=== PATIENT | female | born 1955 | race Caucasian/White ===

== ENCOUNTER 2023-01-11 09:43 | Inpatient (IN) ==
[2023-01-11] MEDS ORDERED: Morphine 4 MG/ML VIAL (1 ml) IV ONE (10:40)
[2023-01-11] MEDS ORDERED: fentaNYL 100 mcg/2 ml 50 MCG/ML VIAL IV SLOW PU ONE (14:09)
[2023-01-11] MEDS ORDERED: Midazolam 2 mg/2 ml VIAL 1 mg/ml 2 ml VIAL (2 mg) IV SLOW PU ONE (14:09)
[2023-01-11] MEDS ORDERED: NS 0.9% 1000 ml BAG 1,000 ML IV SCH (15:00)
[2023-01-11 16:37] LABS: ABS Basophils 0.1 10^3/uL (0.0-0.1); ABS Eosinophils 0.1 10^3/uL (0.0-0.5); ABS Lymphocytes 1.4 10^3/uL (1.0-4.8); ABS Monocytes 0.6 10^3/uL (0.0-0.9); ABS Neutrophils 7.6 10^3/uL (1.5-7.6); Eosinophil % 1.4 %; Hematocrit 37.4 % (35-45); Hemoglobin 12.4 g/dL (11.5-14.3); Lymphocyte % 14.5 %; Mean Corpuscular Hemoglobin 29.5 pg (27-33); Mean Corpuscular Hgb Conc 33.2 g/dL (31-36); Mean Platelet Volume 7.7 fL (7.5-11.2); Platelet Count 372 10^3/uL (150-450); Red Cell Distribution Width 13.9 % (12-17); White Blood Count 9.9 10^3/uL (3.8-11.8)
[2023-01-11 16:46] LABS: Activated Partial Thrombo Time 27.2 seconds (26.0-38.0); INR 0.95 (0.83-1.13)
[2023-01-11 16:59] LABS: Albumin/Globulin Ratio 1.1 (1-3); Calcium 8.4 mg/dL (8.6-10.3); Creatinine, Serum 1.31 mg/dL (0.51-0.95); Globulin 2.8 g/dL (2-4); Total Bilirubin 0.4 mg/dL (0.2-1.0); Total Protein 5.8 g/dL (6.4-8.9); eGFR CKD-EPI 45.2 (>60)
[2023-01-11] MEDS ORDERED: Heparin 5000 UNITS/ML 1 mL VIAL SUBCUT ONE (17:29)
[2023-01-11] MEDS ORDERED: Dextrose 50% Syringe 50 ml 25 GM/50 ML SYRINGE IV PUSH PRN (18:25)
[2023-01-11] MEDS ORDERED: Senna TAB 8.6 mg TAB PO PRN (18:28)
[2023-01-11] MEDS ORDERED: Polyethylene Glycol 3350 17 GM PACKET PO PRN (18:28)
[2023-01-11] MEDS: Morphine 2 MG/ML SYRINGE IV PRN (20:03)
[2023-01-11] MEDS: Lactated Ringers 1000 ml BAG 1,000 ML IV SCH (21:43)
[2023-01-11] MEDS: Acetaminophen IV 1 GM/100ML 1,000 MG/100 ML BAG IV PRN (21:44)
[2023-01-12] MEDS ORDERED: Ondansetron 4 mg VIAL 2 MG/ML 2 ml VIAL IV ONE (02:02)
[2023-01-12] MEDS: Morphine 2 MG/ML SYRINGE IV PRN ×2 (03:27→08:42)
[2023-01-12] MEDS: Lactated Ringers 1000 ml BAG 1,000 ML IV SCH (05:23)
[2023-01-12 06:07] LABS: Hematocrit 30.9 % (35-45); Hemoglobin 10.3 g/dL (11.5-14.3); Mean Corpuscular Hemoglobin 29.7 pg (27-33); Mean Corpuscular Hgb Conc 33.2 g/dL (31-36); Mean Corpuscular Volume 89.5 fL (80-97); Mean Platelet Volume 7.9 fL (7.5-11.2); Platelet Count 318 10^3/uL (150-450); Red Blood Count 3.45 10^6/uL (3.63-4.92); Red Cell Distribution Width 14.4 % (12-17); White Blood Count 7.7 10^3/uL (3.8-11.8)
[2023-01-12 06:24] LABS: Calcium 7.9 mg/dL (8.6-10.3); Creatinine, Serum 1.5 mg/dL (0.51-0.95); Magnesium 1.7 mg/dL (1.9-2.7); Potassium 5.2 mmol/L (3.5-5.0); eGFR CKD-EPI 38.4 (>60)
[2023-01-12] MEDS ORDERED: Magnesium Sulfate 2 gm BAG 2 GM/50 ML BAG IVPB ONE (08:00)
[2023-01-12] MEDS ORDERED: NS 0.9% 1000 ml BAG 1,000 ML IV SCH (08:00)
[2023-01-12] MEDS ORDERED: Omeprazole 20 mg CAP (NF) PO SCH (09:00)
[2023-01-12] MEDS ORDERED: Dextrose 50% Syringe 50 ml 25 GM/50 ML SYRINGE IV PUSH ONE (10:04)
[2023-01-12] MEDS ORDERED: Dextrose 50% VIAL 50 ml IV ONE (10:04)
[2023-01-12] MEDS ORDERED: Albuterol HFA INHALER 8 gm MDI INH ONE (10:11)
[2023-01-12] MEDS ORDERED: Albuterol 2.5mg/3 ml (0.083%) NEB.SOLN INH ONE (10:30)
[2023-01-12] MEDS ORDERED: fentaNYL 100 mcg/2 ml 50 MCG/ML VIAL ONE (10:43)
[2023-01-12] MEDS ORDERED: Rocuronium 50 mg VIAL 10 mg/ml 5 ml VIAL (50 mg) ONE (10:43)
[2023-01-12] MEDS ORDERED: Lidocaine 2% PF 5 ML VIAL ONE (10:43)
[2023-01-12] MEDS ORDERED: Propofol 10 MG/ML 20 ML BTL ONE (10:43)
[2023-01-12] MEDS ORDERED: Midazolam 2 mg/2 ml VIAL 1 mg/ml 2 ml VIAL (2 mg) ONE (10:43)
[2023-01-12] MEDS ORDERED: Lidocaine 1% w EPI 1:200,000 SDV 30 ML VIAL ONE (11:23)
[2023-01-12] MEDS ORDERED: ceFAZolin 2 GM in NS PREMIX 2 GM/100 ML BAG IVPB ONE (11:35)
[2023-01-12] MEDS ORDERED: Ondansetron 4 mg VIAL 2 MG/ML 2 ml VIAL ONE ×2 (12:46→16:38)
[2023-01-12] MEDS ORDERED: Dexamethasone IV 4 MG/ML VIAL 1 ml VIAL ONE (12:46)
[2023-01-12] MEDS ORDERED: HYDROmorphone 0.5 MG/0.5 ML SYRINGE ONE (13:06)
[2023-01-12] MEDS ORDERED: Acetaminophen IV 1 GM/100ML 1,000 MG/100 ML BAG IV ONE (14:49)
[2023-01-12] MEDS ORDERED: Ondansetron 4 mg VIAL 2 MG/ML 2 ml VIAL IV PRN (15:14)
[2023-01-12] MEDS ORDERED: HYDROmorphone 1 MG/1 ML SYRINGE IV PRN (15:14)
[2023-01-12] MEDS ORDERED: Naloxone 0.4 mg VIAL 0.4 mg/ml 1 ml VIAL IV PRN (15:14)
[2023-01-12] MEDS ORDERED: fentaNYL 100 mcg/2 ml 50 MCG/ML VIAL IV PRN (15:14)
[2023-01-12] MEDS ORDERED: fentaNYL 100 mcg/2 ml 50 MCG/ML VIAL IV SLOW PU PRN (16:42)
[2023-01-12] MEDS ORDERED: Lactated Ringers 1000 ml BAG 1,000 ML IV SCH (17:00)
[2023-01-12] MEDS: ceFAZolin 2 GM PREMIX 2 GM/50 ML BAG IV SCH (20:21)
[2023-01-12] MEDS: Acetaminophen IV 1 GM/100ML 1,000 MG/100 ML BAG IV PRN (21:16)
[2023-01-13] MEDS: ceFAZolin 2 GM PREMIX 2 GM/50 ML BAG IV SCH ×2 (04:50→12:27)
[2023-01-13 07:45] LABS: Hematocrit 28.3 % (35-45); Hemoglobin 9.4 g/dL (11.5-14.3); Mean Corpuscular Hemoglobin 29.9 pg (27-33); Mean Corpuscular Hgb Conc 33.3 g/dL (31-36); Mean Corpuscular Volume 89.6 fL (80-97); Mean Platelet Volume 7.9 fL (7.5-11.2); Platelet Count 321 10^3/uL (150-450); Red Blood Count 3.16 10^6/uL (3.63-4.92); Red Cell Distribution Width 14.1 % (12-17); White Blood Count 11.9 10^3/uL (3.8-11.8)
[2023-01-13 08:06] LABS: Calcium 7.8 mg/dL (8.6-10.3); Creatinine, Serum 1.67 mg/dL (0.51-0.95); Magnesium 2.2 mg/dL (1.9-2.7); Potassium 5.4 mmol/L (3.5-5.0); eGFR CKD-EPI 33.8 (>60)
[2023-01-13] MEDS: Enoxaparin 40 MG/0.4 ML SYR SUBCUT SCH (08:17)
[2023-01-13] MEDS ORDERED: SODIUM ZIRCONIUM CYCLOSILICATE 10 GM PACKET PO ONE (08:58)
[2023-01-13 17:48] LABS: Calcium 8.2 mg/dL (8.6-10.3); Creatinine, Serum 1.72 mg/dL (0.51-0.95); Potassium 5.2 mmol/L (3.5-5.0); eGFR CKD-EPI 32.6 (>60)
[2023-01-13] MEDS: Acetaminophen IV 1 GM/100ML 1,000 MG/100 ML BAG IV PRN (21:29)
[2023-01-14 07:21] LABS: ABS Eosinophils 0.1 10^3/uL (0.0-0.5); ABS Lymphocytes 1.8 10^3/uL (1.0-4.8); ABS Monocytes 0.9 10^3/uL (0.0-0.9); ABS Neutrophils 7.3 10^3/uL (1.5-7.6); Eosinophil % 1.2 %; Hematocrit 27.1 % (35-45); Hemoglobin 9.1 g/dL (11.5-14.3); Lymphocyte % 18.1 %; Mean Corpuscular Hemoglobin 30.2 pg (27-33); Mean Corpuscular Hgb Conc 33.8 g/dL (31-36); Mean Corpuscular Volume 89.4 fL (80-97); Mean Platelet Volume 7.9 fL (7.5-11.2); Platelet Count 319 10^3/uL (150-450); Red Blood Count 3.03 10^6/uL (3.63-4.92); Red Cell Distribution Width 14.3 % (12-17); White Blood Count 10.2 10^3/uL (3.8-11.8)
[2023-01-14 07:38] LABS: Calcium 7.9 mg/dL (8.6-10.3); Creatinine, Serum 1.68 mg/dL (0.51-0.95); Magnesium 2.2 mg/dL (1.9-2.7); Potassium 4.7 mmol/L (3.5-5.0); eGFR CKD-EPI 33.5 (>60)
[2023-01-14] MEDS: Enoxaparin 40 MG/0.4 ML SYR SUBCUT SCH (08:36)
[2023-01-15 07:04] LABS: ABS Eosinophils 0.2 10^3/uL (0.0-0.5); ABS Lymphocytes 1.7 10^3/uL (1.0-4.8); ABS Monocytes 0.7 10^3/uL (0.0-0.9); ABS Neutrophils 5.4 10^3/uL (1.5-7.6); ABS Nucleated RBC 0.01 10^3/ul; Eosinophil % 2.3 %; Hematocrit 26.4 % (35-45); Hemoglobin 8.9 g/dL (11.5-14.3); Lymphocyte % 20.7 %; Mean Corpuscular Hemoglobin 30.3 pg (27-33); Mean Corpuscular Hgb Conc 33.8 g/dL (31-36); Mean Corpuscular Volume 89.5 fL (80-97); Mean Platelet Volume 7.9 fL (7.5-11.2); Nucleated Red Blood Cells % 0.1 /100 WBC (0.0-0.4); Platelet Count 317 10^3/uL (150-450); Red Blood Count 2.95 10^6/uL (3.63-4.92); Red Cell Distribution Width 14.4 % (12-17)
[2023-01-15 07:20] LABS: Calcium 7.9 mg/dL (8.6-10.3); Creatinine, Serum 1.61 mg/dL (0.51-0.95); Potassium 4.7 mmol/L (3.5-5.0); eGFR CKD-EPI 35.3 (>60)
[2023-01-15] MEDS: Enoxaparin 40 MG/0.4 ML SYR SUBCUT SCH (08:38)
[2023-01-15] MEDS: CMCS: SitaGLIPtin 100 mg TAB (NF) PO SCH (15:07)
[2023-01-16 05:44] LABS: Hematocrit 23.8 % (35-45); Hemoglobin 8.2 g/dL (11.5-14.3); Mean Corpuscular Hemoglobin 30.4 pg (27-33); Mean Corpuscular Hgb Conc 34.4 g/dL (31-36); Mean Corpuscular Volume 88.3 fL (80-97); Mean Platelet Volume 7.8 fL (7.5-11.2); Platelet Count 323 10^3/uL (150-450); Red Blood Count 2.69 10^6/uL (3.63-4.92); Red Cell Distribution Width 14.1 % (12-17); White Blood Count 6.7 10^3/uL (3.8-11.8)
[2023-01-16 06:07] LABS: Calcium 8.2 mg/dL (8.6-10.3); Creatinine, Serum 1.42 mg/dL (0.51-0.95); Magnesium 1.9 mg/dL (1.9-2.7); Phosphorus 3.5 mg/dL (2.5-5.0); Potassium 4.9 mmol/L (3.5-5.0)
[2023-01-16] MEDS: Enoxaparin 40 MG/0.4 ML SYR SUBCUT SCH (08:38)
[2023-01-16 10:47] VITALS: BP 151/72
[2023-01-16] MEDS: CMCS: SitaGLIPtin 100 mg TAB (NF) PO SCH (11:18)
[2023-01-16 13:40] LABS: Rapid COVID-19 Molecular Undetected (Undetected)
== END 2023-01-16 14:30 | DRG 494 ==
LOC: ED 09:43 → SUATTDRO 17:27 → EDHOLD 17:27 → SSU 17:36
PROVIDERS: ADMIT Internal Medicine; ATTEND Internal Medicine

== ENCOUNTER 2023-07-06 19:26 | Inpatient (IN) ==
[2023-07-06 20:45] LABS: ABS Basophils 0.1 10^3/uL (0.0-0.1); ABS Monocytes 0.4 10^3/uL (0.0-0.9); ABS Neutrophils 12.5 10^3/uL (1.5-7.6); ABS Nucleated RBC 0.03 10^3/ul; Eosinophil % 0.2 %; Hematocrit 34.4 % (35-45); Hemoglobin 11.5 g/dL (11.5-14.3); Lymphocyte % 6.9 %; Mean Corpuscular Hemoglobin 29.4 pg (27-33); Mean Corpuscular Hgb Conc 33.5 g/dL (31-36); Mean Corpuscular Volume 87.8 fL (80-97); Mean Platelet Volume 8.6 fL (7.5-11.2); Nucleated Red Blood Cells % 0.2 %/100WBC (0.0-0.8); Platelet Count 613 10^3/uL (150-450); Red Blood Count 3.91 10^6/uL (3.63-4.92); Red Cell Distribution Width 22.4 % (12-17); White Blood Count 14.1 10^3/uL (3.8-11.8)
[2023-07-06 21:02] LABS: Activated Partial Thrombo Time 61.4 seconds (26.0-38.0); INR 4.08 (0.83-1.13)
[2023-07-06 21:08] LABS: High Sens Troponin Baseline 19 pg/mL (<15)
[2023-07-06 21:10] LABS: ALT 87 U/L (7-52); Albumin 1.8 g/dL (3.2-5.2); Albumin/Globulin Ratio 0.4 (1-3); Alkaline Phosphatase 345 U/L (35-149); Anion Gap 14 mmol/L (2-16); Blood Urea Nitrogen 38 mg/dL (6-24); C Reactive Protein 89.76 mg/L (<8.01); CO2 Carbon Dioxide 16 mmol/L (22-32); CRP High Sensitivity 79.63 mg/L (<2.00); Calcium 7.1 mg/dL (8.6-10.3); Chloride 99 mmol/L (101-111); Creatinine, Serum 4.17 mg/dL (0.51-0.95); Globulin 4.2 g/dL (2-4); Glucose 30 mg/dL (70-100); Sodium 129 mmol/L (135-145); Total Bilirubin 0.5 mg/dL (0.2-1.0); eGFR CKD-EPI 11.3 (>60)
[2023-07-06] MEDS ORDERED: Dextrose 50% Syringe 50 ml 25 GM/50 ML SYRINGE ONE (21:11)
[2023-07-06 21:12] LABS: Venous Bicarbonate HCO3 17.9 mmol/L (24-28)
[2023-07-06] MEDS: NS 0.9% 1000 ml BAG 1,000 ML IV ONE (21:16)
[2023-07-06] MEDS: Dextrose 50% Syringe 50 ml 25 GM/50 ML SYRINGE IV PUSH ONE ×2 (21:16→21:18)
[2023-07-06] MEDS: Cefepime 2 GM in Dextrose 2 GM/50 ML BAG IV ONE (21:18)
[2023-07-06 21:30] LABS: TSH Ultra Thyroid Stim Horm 8.09 mcIU/mL (0.34-5.60)
[2023-07-06] MEDS: NS 0.9% 500 ml BAG 500 ML IV ONE (21:30)
[2023-07-06] MEDS: Vancomycin 1,250 MG in NS 0.9% 250 ml 250 ML IVPB ONE (21:48)
[2023-07-06 22:05] LABS: High Sensitivity Troponin 1 Hr 20 pg/mL (<15)
[2023-07-06 22:13] LABS: Lipase 19 U/L (11.0-82.0)
[2023-07-06 23:27] LABS: Creatine Kinase 148 U/L (10-223)
[2023-07-07] LABS: Urine Appearance Extra Turbid; Urine Bilirubin Negative (Negative); Urine Blood 2+ (Negative); Urine Glucose Negative (Negative); Urine Ketones Trace (Negative); Urine Nitrite Negative (Negative); Urine Protein 2+ (>=100 mg/dL) (Negative); Urine Specific Gravity 1.018 (1.002-1.030); Urine Urobilinogen Negative (Negative); Urine pH 5.5 (5.0-8.0)
[2023-07-07] MEDS: Albumin Human 25% 100 GM/400 ML BTL IV ONE (00:14)
[2023-07-07 00:18] LABS: Magnesium 1.7 mg/dL (1.9-2.7); Potassium 4.7 mmol/L (3.5-5.0)
[2023-07-07 00:26] LABS: Urine Bacteria 2+ /HPF (Absent); Urine Red Blood Cell 3+(>10/hpf) /HPF (0-Trace); Urine White Blood Cell 3+(>20/hpf) /HPF (0-Trace)
[2023-07-07] MEDS ORDERED: Calcium Gluconate 2 GM in NS 0.9% 100 ml BAG 100 ML IVPB ONE (00:30)
[2023-07-07 00:33] LABS: Urine Color Light-Yellow
[2023-07-07] MEDS: Magnesium Sulfate 2 gm BAG 2 GM/50 ML BAG IVPB ONE (01:29)
[2023-07-07] MEDS: CALCIUM GLUCONATE 1GM/50ML NS BAG IV SCH (01:30)
[2023-07-07 01:33] LABS: Acetaminophen < 15 mcg/mL; GGTP 182 U/L (9-64.0)
[2023-07-07] MEDS: Cefepime 1 GM in Dextrose 1 GM/50 ML BAG IV SCH ×2 (01:34→04:43)
[2023-07-07] MEDS: Norepinephrine 4 MG/250mL D5W 4,000 MCG/250 ML BAG IV SCH (01:40)
[2023-07-07] MEDS: D5LR 1000 ml BAG 1,000 ML IV SCH (03:27)
[2023-07-07] MEDS: Meropenem 1 GM PREMIX(*) 1 GM/50 ML BAG IV SCH ×2 (04:34→04:43)
[2023-07-07 06:18] LABS: Albumin 3.1 g/dL (3.2-5.2); Albumin/Globulin Ratio 1.5 (1-3); Calcium 7.4 mg/dL (8.6-10.3); Creatinine, Serum 3.97 mg/dL (0.51-0.95); Globulin 2.1 g/dL (2-4); Magnesium 1.9 mg/dL (1.9-2.7); Potassium 4.7 mmol/L (3.5-5.0); Total Bilirubin 0.9 mg/dL (0.2-1.0); Total Protein 5.2 g/dL (6.4-8.9)
[2023-07-07 06:29] LABS: ABS Lymphocytes 1.2 10^3/uL (1.0-4.8); ABS Monocytes 0.6 10^3/uL (0.0-0.9); ABS Neutrophils 9.8 10^3/uL (1.5-7.6); ABS Nucleated RBC 0.01 10^3/ul; Eosinophil % 0.2 %; Hematocrit 20.3 % (35-45); Hemoglobin 6.8 g/dL (11.5-14.3); Lymphocyte % 10.1 %; Mean Corpuscular Hemoglobin 29.5 pg (27-33); Mean Corpuscular Hgb Conc 33.6 g/dL (31-36); Mean Platelet Volume 8.3 fL (7.5-11.2); Nucleated Red Blood Cells % 0.1 %/100WBC (0.0-0.8); Platelet Count 364 10^3/uL (150-450); Red Blood Count 2.31 10^6/uL (3.63-4.92); Red Cell Distribution Width 21.3 % (12-17); White Blood Count 11.5 10^3/uL (3.8-11.8)
[2023-07-07 08:50] LABS: Hematocrit 20.8 % (35-45); Hemoglobin 7.1 g/dL (11.5-14.3)
[2023-07-07] MEDS: Furosemide 40 mg/4 ml IV VIAL IV ONE ×2 (09:53→15:46)
[2023-07-07] MEDS: Pantoprazole VIAL 40 MG VIAL IV SCH (10:45)
[2023-07-07] MEDS: D10W 1000 ml BAG 1,000 ML IV SCH ×2 (12:26→15:47)
[2023-07-07] MEDS: Phytonadione IV (Adult) 5 MG in NS 0.9% 50 ML 50 ML IV ONE (15:56)
[2023-07-07 16:23] LABS: ABS Basophils 0.1 10^3/uL (0.0-0.1); ABS Eosinophils 0.1 10^3/uL (0.0-0.5); ABS Lymphocytes 0.8 10^3/uL (1.0-4.8); ABS Monocytes 0.3 10^3/uL (0.0-0.9); ABS Neutrophils 10.2 10^3/uL (1.5-7.6); ABS Nucleated RBC 0.03 10^3/ul; Eosinophil % 0.5 %; Hematocrit 28.1 % (35-45); Hemoglobin 9.5 g/dL (11.5-14.3); Mean Corpuscular Hemoglobin 29.3 pg (27-33); Mean Corpuscular Volume 86.3 fL (80-97); Mean Platelet Volume 8.3 fL (7.5-11.2); Nucleated Red Blood Cells % 0.3 %/100WBC (0.0-0.8); Platelet Count 328 10^3/uL (150-450); Red Blood Count 3.26 10^6/uL (3.63-4.92); Red Cell Distribution Width 18.8 % (12-17); White Blood Count 11.3 10^3/uL (3.8-11.8)
[2023-07-07] MEDS ORDERED: Vancomycin per Pharmacy 1 EA NOTE FOLLOW UP SCH (19:00)
[2023-07-08 05:38] LABS: Hematocrit 31.7 % (35-45); Hemoglobin 10.7 g/dL (11.5-14.3); Mean Corpuscular Hgb Conc 33.6 g/dL (31-36); Mean Corpuscular Volume 86.2 fL (80-97); Mean Platelet Volume 8.6 fL (7.5-11.2); Platelet Count 362 10^3/uL (150-450); Red Blood Count 3.68 10^6/uL (3.63-4.92); Red Cell Distribution Width 19.3 % (12-17); White Blood Count 13.6 10^3/uL (3.8-11.8)
[2023-07-08 05:52] LABS: Calcium 7.1 mg/dL (8.6-10.3); Creatinine, Serum 3.62 mg/dL (0.51-0.95); Magnesium 1.8 mg/dL (1.9-2.7); Phosphorus 3.9 mg/dL (2.5-5.0); Potassium 4.1 mmol/L (3.5-5.0); eGFR CKD-EPI 13.4 (>60)
[2023-07-08 06:02] LABS: ABS Basophils 0.1 10^3/uL (0.0-0.1); ABS Eosinophils 0.1 10^3/uL (0.0-0.5); ABS Lymphocytes 1.2 10^3/uL (1.0-4.8); ABS Monocytes 0.5 10^3/uL (0.0-0.9); ABS Neutrophils 11.7 10^3/uL (1.5-7.6); ABS Nucleated RBC 0.01 10^3/ul; Eosinophil % 0.7 %; Nucleated Red Blood Cells % 0.1 %/100WBC (0.0-0.8)
[2023-07-08] MEDS: Vancomycin Random Level NOTE FOLLOW UP ONE (06:15)
[2023-07-08 06:28] LABS: Vancomycin Random 11.7 mcg/mL
[2023-07-08] MEDS: Furosemide IV 100 MG in NS 0.9% 100 ML TOTAL IV SCH (09:51)
[2023-07-08 10:29] LABS: INR 2.74 (0.83-1.13)
[2023-07-08 10:44] LABS: Anion Gap 9 mmol/L (2-16); Blood Urea Nitrogen 34 mg/dL (6-24); CO2 Carbon Dioxide 19 mmol/L (22-32); Calcium 6.7 mg/dL (8.6-10.3); Chloride 105 mmol/L (101-111); Creatinine, Serum 3.39 mg/dL (0.51-0.95); Glucose 192 mg/dL (70-100); Sodium 133 mmol/L (135-145); eGFR CKD-EPI 14.4 (>60)
[2023-07-08 11:23] LABS: Albumin 2.3 g/dL (3.2-5.2)
[2023-07-08] MEDS: Oseltamivir SUSP ORALSYR 6 MG/ML PO SCH (12:09)
[2023-07-08] MEDS: Albumin Human 25% 0 GM/0 ML BTL IV ONE (12:57)
[2023-07-08] MEDS: Albumin Human 25% 25 GM/100 ML BTL IV SCH (13:15)
[2023-07-08 13:20] LABS: Glucose 210 mg/dL (70-100)
[2023-07-08 13:24] LABS: Potassium, Whole Blood 4.3 mmol/L (3.4-4.5)
[2023-07-08] MEDS: Vancomycin 750 MG in NS 0.9% 250 ML IVPB ONE (14:05)
[2023-07-08 16:21] LABS: Calcium 7.2 mg/dL (8.6-10.3); Creatinine, Serum 3.46 mg/dL (0.51-0.95); Potassium 3.6 mmol/L (3.5-5.0); eGFR CKD-EPI 14.1 (>60)
[2023-07-08 20:51] LABS: Anion Gap 14 mmol/L (2-16); Blood Urea Nitrogen 35 mg/dL (6-24); CO2 Carbon Dioxide 19 mmol/L (22-32); Calcium 7.8 mg/dL (8.6-10.3); Chloride 101 mmol/L (101-111); Creatinine, Serum 3.49 mg/dL (0.51-0.95); Glucose 209 mg/dL (70-100); Sodium 134 mmol/L (135-145)
[2023-07-09 06:07] LABS: ABS Basophils 0.1 10^3/uL (0.0-0.1); ABS Eosinophils 0.1 10^3/uL (0.0-0.5); ABS Monocytes 0.4 10^3/uL (0.0-0.9); ABS Neutrophils 8.8 10^3/uL (1.5-7.6); ABS Nucleated RBC 0.01 10^3/ul; Eosinophil % 1.4 %; Hematocrit 25.6 % (35-45); Hemoglobin 9.2 g/dL (11.5-14.3); Lymphocyte % 9.6 %; Mean Corpuscular Hemoglobin 30.7 pg (27-33); Mean Corpuscular Hgb Conc 35.8 g/dL (31-36); Mean Corpuscular Volume 85.8 fL (80-97); Mean Platelet Volume 8.9 fL (7.5-11.2); Nucleated Red Blood Cells % 0.1 %/100WBC (0.0-0.8); Platelet Count 283 10^3/uL (150-450); Red Blood Count 2.99 10^6/uL (3.63-4.92); Red Cell Distribution Width 18.9 % (12-17); White Blood Count 10.5 10^3/uL (3.8-11.8)
[2023-07-09] MEDS: Vancomycin Random Level NOTE FOLLOW UP ONE (06:22)
[2023-07-09 06:36] LABS: Anion Gap 13 mmol/L (2-16); Blood Urea Nitrogen 35 mg/dL (6-24); CO2 Carbon Dioxide 20 mmol/L (22-32); Calcium 7.7 mg/dL (8.6-10.3); Chloride 102 mmol/L (101-111); Creatinine, Serum 3.32 mg/dL (0.51-0.95); Glucose 165 mg/dL (70-100); Sodium 135 mmol/L (135-145); eGFR CKD-EPI 14.8 (>60)
[2023-07-09 06:42] LABS: Vancomycin Random 18.7 mcg/mL
[2023-07-09 07:56] LABS: Albumin 3.4 g/dL (3.2-5.2)
[2023-07-09 09:21] LABS: Magnesium 1.8 mg/dL (1.9-2.7)
[2023-07-09] MEDS: Thiamine 100 MG/ML 2 ml VIAL 500 MG in NS 0.9% 250 ml 250 ML IV SCH (09:54)
[2023-07-09 10:52] LABS: INR 2.36 (0.83-1.13)
[2023-07-09 10:52] LABS: Potassium, Whole Blood 3.2 mmol/L (3.4-4.5)
[2023-07-09] MEDS: Vancomycin 500 MG in NS 0.9% 250 ML IVPB ONE (13:02)
[2023-07-09] MEDS ORDERED: Zosyn per Pharmacy NOTE FOLLOW UP SCH (16:00)
[2023-07-09] MEDS: ZOSYN 3.375 GM x ONE DOSE over 30 miuntes IV (16:46)
[2023-07-09] MEDS: ZOSYN 3.375 GM Q12H per EXTENDED INFUSION IV SCH (21:44)
[2023-07-09] MEDS: Carbamide Peroxide 6.5% OTIC 15 ML BTL BOTH EARS SCH (21:53)
[2023-07-10] MEDS: Acetaminophen IV 1 GM/100ML 1,000 MG/100 ML BAG IV ONE ×2 (00:15→02:51)
[2023-07-10] MEDS: Ondansetron 4 mg VIAL 2 MG/ML 2 ml VIAL IV PRN (00:20)
[2023-07-10] MEDS: Ondansetron 4 mg VIAL 2 MG/ML 2 ml VIAL ONE (02:51)
[2023-07-10 04:34] LABS: Hematocrit 28.1 % (35-45); Hemoglobin 9.7 g/dL (11.5-14.3); Mean Corpuscular Hgb Conc 34.5 g/dL (31-36); Mean Platelet Volume 9.1 fL (7.5-11.2); Platelet Count 255 10^3/uL (150-450); Red Blood Count 3.24 10^6/uL (3.63-4.92); Red Cell Distribution Width 18.7 % (12-17); White Blood Count 10.5 10^3/uL (3.8-11.8)
[2023-07-10 04:38] LABS: INR 1.93 (0.83-1.13)
[2023-07-10 05:19] LABS: ALT 45 U/L (7-52); Albumin 2.6 g/dL (3.2-5.2); Albumin/Globulin Ratio 1.4 (1-3); Alkaline Phosphatase 248 U/L (35-149); Anion Gap 15 mmol/L (2-16); Blood Urea Nitrogen 33 mg/dL (6-24); CO2 Carbon Dioxide 22 mmol/L (22-32); Calcium 7.3 mg/dL (8.6-10.3); Chloride 102 mmol/L (101-111); Creatinine, Serum 2.91 mg/dL (0.51-0.95); Globulin 1.9 g/dL (2-4); Glucose 129 mg/dL (70-100); Sodium 139 mmol/L (135-145); Total Bilirubin 1.3 mg/dL (0.2-1.0); Total Protein 4.5 g/dL (6.4-8.9); eGFR CKD-EPI 17.4 (>60)
[2023-07-10 05:30] LABS: ABS Basophils 0.1 10^3/uL (0.0-0.1); ABS Eosinophils 0.4 10^3/uL (0.0-0.5); ABS Lymphocytes 0.9 10^3/uL (1.0-4.8); ABS Monocytes 0.4 10^3/uL (0.0-0.9); ABS Neutrophils 8.6 10^3/uL (1.5-7.6); ABS Nucleated RBC 0.01 10^3/ul; Lymphocyte % 8.9 %; Nucleated Red Blood Cells % 0.1 %/100WBC (0.0-0.8)
[2023-07-10] MEDS: Vancomycin Random Level NOTE FOLLOW UP ONE (06:01)
[2023-07-10] MEDS ORDERED: Vancomycin per Pharmacy 1 EA NOTE FOLLOW UP SCH (11:00)
[2023-07-10 11:15] LABS: Vancomycin Random 19.6 mcg/mL
[2023-07-10] MEDS: Vancomycin 500 MG in NS 0.9% 250 ML IVPB ONE (12:48)
[2023-07-10] MEDS ORDERED: Dextrose 50% Syringe 50 ml 25 GM/50 ML SYRINGE IV PUSH PRN (13:55)
[2023-07-10] MEDS: Heparin 5000 UNITS/ML 1 mL VIAL SUBCUT SCH (20:23)
[2023-07-11 06:06] LABS: ABS Basophils 0.1 10^3/uL (0.0-0.1); ABS Eosinophils 0.6 10^3/uL (0.0-0.5); ABS Monocytes 0.6 10^3/uL (0.0-0.9); ABS Neutrophils 9.9 10^3/uL (1.5-7.6); ABS Nucleated RBC 0.01 10^3/ul; Eosinophil % 5.1 %; Hematocrit 28.4 % (35-45); Hemoglobin 9.5 g/dL (11.5-14.3); Lymphocyte % 7.9 %; Mean Corpuscular Hemoglobin 29.4 pg (27-33); Mean Corpuscular Hgb Conc 33.5 g/dL (31-36); Mean Corpuscular Volume 87.9 fL (80-97); Mean Platelet Volume 9.5 fL (7.5-11.2); Nucleated Red Blood Cells % 0.1 %/100WBC (0.0-0.8); Platelet Count 261 10^3/uL (150-450); Red Blood Count 3.24 10^6/uL (3.63-4.92); Red Cell Distribution Width 18.6 % (12-17); White Blood Count 12.1 10^3/uL (3.8-11.8)
[2023-07-11 06:23] LABS: Albumin 2.6 g/dL (3.2-5.2); Albumin/Globulin Ratio 1.2 (1-3); Calcium 7.5 mg/dL (8.6-10.3); Creatinine, Serum 2.52 mg/dL (0.51-0.95); Globulin 2.2 g/dL (2-4); Magnesium 1.6 mg/dL (1.9-2.7); Potassium 3.4 mmol/L (3.5-5.0); Total Bilirubin 1.2 mg/dL (0.2-1.0); Total Protein 4.8 g/dL (6.4-8.9); eGFR CKD-EPI 20.6 (>60)
[2023-07-11] MEDS: Magnesium Sulfate 2 gm BAG 2 GM/50 ML BAG IVPB ONE (08:55)
[2023-07-11] MEDS: Potassium Chlor 20 meq TAB.ER PO ONE (08:57)
[2023-07-11] MEDS: Magnesium Sulfate IV 1GM/100ML 1 GM/100 ML BAG IV ONE (10:16)
[2023-07-11] MEDS: Vancomycin Random Level NOTE FOLLOW UP ONE (12:36)
[2023-07-11] MEDS: Furosemide 40 mg/4 ml IV VIAL IV SLOW PU ONE (17:10)
[2023-07-12 06:10] LABS: ABS Basophils 0.1 10^3/uL (0.0-0.1); ABS Eosinophils 0.5 10^3/uL (0.0-0.5); ABS Monocytes 0.6 10^3/uL (0.0-0.9); ABS Neutrophils 7.6 10^3/uL (1.5-7.6); ABS Nucleated RBC 0.02 10^3/ul; Eosinophil % 5.5 %; Hematocrit 29.2 % (35-45); Hemoglobin 9.3 g/dL (11.5-14.3); Mean Corpuscular Hemoglobin 29.2 pg (27-33); Mean Corpuscular Hgb Conc 31.9 g/dL (31-36); Mean Corpuscular Volume 91.5 fL (80-97); Mean Platelet Volume 9.2 fL (7.5-11.2); Nucleated Red Blood Cells % 0.2 %/100WBC (0.0-0.8); Platelet Count 249 10^3/uL (150-450); Red Blood Count 3.19 10^6/uL (3.63-4.92); Red Cell Distribution Width 19.3 % (12-17); White Blood Count 9.8 10^3/uL (3.8-11.8)
[2023-07-12 06:13] LABS: Albumin 2.4 g/dL (3.2-5.2); Albumin/Globulin Ratio 1.1 (1-3); Calcium 7.3 mg/dL (8.6-10.3); Creatinine, Serum 2.1 mg/dL (0.51-0.95); Globulin 2.2 g/dL (2-4); Magnesium 2.1 mg/dL (1.9-2.7); Phosphorus 2.2 mg/dL (2.5-5.0); Potassium 3.7 mmol/L (3.5-5.0); Total Bilirubin 1.1 mg/dL (0.2-1.0); Total Protein 4.6 g/dL (6.4-8.9); eGFR CKD-EPI 25.7 (>60)
[2023-07-12] MEDS: Furosemide 40 mg/4 ml IV VIAL IV SLOW PU SCH (10:18)
[2023-07-13 05:49] LABS: ABS Basophils 0.1 10^3/uL (0.0-0.1); ABS Eosinophils 0.5 10^3/uL (0.0-0.5); ABS Lymphocytes 1.2 10^3/uL (1.0-4.8); ABS Monocytes 0.7 10^3/uL (0.0-0.9); ABS Neutrophils 7.4 10^3/uL (1.5-7.6); ABS Nucleated RBC 0.01 10^3/ul; Eosinophil % 5.1 %; Hemoglobin 9.4 g/dL (11.5-14.3); Lymphocyte % 12.2 %; Mean Corpuscular Hemoglobin 29.7 pg (27-33); Mean Corpuscular Hgb Conc 33.5 g/dL (31-36); Mean Corpuscular Volume 88.6 fL (80-97); Mean Platelet Volume 9.5 fL (7.5-11.2); Nucleated Red Blood Cells % 0.1 %/100WBC (0.0-0.8); Platelet Count 325 10^3/uL (150-450); Red Blood Count 3.16 10^6/uL (3.63-4.92); Red Cell Distribution Width 18.9 % (12-17)
[2023-07-13 05:57] LABS: Albumin 2.4 g/dL (3.2-5.2); Calcium 7.3 mg/dL (8.6-10.3); Creatinine, Serum 1.83 mg/dL (0.51-0.95); Direct Bilirubin 0.4 mg/dL (0.03-0.18); Globulin 2.4 g/dL (2-4); Indirect Bilirubin 0.6 mg/dL (0.3-1.0); Potassium 3.6 mmol/L (3.5-5.0); Total Protein 4.8 g/dL (6.4-8.9); eGFR CKD-EPI 30.3 (>60)
[2023-07-13 13:11] VITALS: BP 126/69
[2023-07-13 13:43] LABS: Rapid COVID-19 Molecular Undetected (Undetected)
[2023-07-13] MEDS: Nystatin TOP POWDER 15 GM BTL TOPICAL SCH (15:37)
== END 2023-07-13 17:50 | DRG 871 ==
LOC: ED 19:26 → EDHOLD 07-07 00:27 → SUATTDRO 07-07 00:27 → ICU 07-07 03:09 → MED 07-10 18:01
PROVIDERS: ADMIT Internal Medicine; ATTEND Internal Medicine

== ENCOUNTER 2023-07-17 10:20 | Inpatient (IN) ==
[2023-07-17 12:31] LABS: ABS Basophils 0.1 10^3/uL (0.0-0.1); ABS Eosinophils 0.1 10^3/uL (0.0-0.5); ABS Lymphocytes 1.1 10^3/uL (1.0-4.8); ABS Monocytes 0.6 10^3/uL (0.0-0.9); ABS Neutrophils 10.3 10^3/uL (1.5-7.6); ABS Nucleated RBC 0.01 10^3/ul; Eosinophil % 1.1 %; Hematocrit 28.3 % (35-45); Hemoglobin 9.5 g/dL (11.5-14.3); Lymphocyte % 8.9 %; Mean Corpuscular Hemoglobin 30.4 pg (27-33); Mean Corpuscular Hgb Conc 33.6 g/dL (31-36); Mean Corpuscular Volume 90.5 fL (80-97); Platelet Count 547 10^3/uL (150-450); Red Blood Count 3.13 10^6/uL (3.63-4.92); Red Cell Distribution Width 19.8 % (12-17); White Blood Count 12.3 10^3/uL (3.8-11.8)
[2023-07-17 12:48] LABS: High Sens Troponin Baseline 16 pg/mL (<15)
[2023-07-17 12:55] LABS: ALT 35 U/L (7-52); Albumin 2.7 g/dL (3.2-5.2); Albumin/Globulin Ratio 0.9 (1-3); Alkaline Phosphatase 270 U/L (35-149); Anion Gap 7 mmol/L (2-16); Blood Urea Nitrogen 25 mg/dL (6-24); C Reactive Protein 25.63 mg/L (<8.01); CO2 Carbon Dioxide 28 mmol/L (22-32); Calcium 7.7 mg/dL (8.6-10.3); Chloride 107 mmol/L (101-111); Creatinine, Serum 1.22 mg/dL (0.51-0.95); Glucose 74 mg/dL (70-100); Sodium 142 mmol/L (135-145); Total Bilirubin 1.1 mg/dL (0.2-1.0); Total Protein 5.7 g/dL (6.4-8.9); eGFR CKD-EPI 49.2 (>60)
[2023-07-17 14:30] LABS: INR 1.38 (0.83-1.13)
[2023-07-17] MEDS: Furosemide 20 mg/2 ml IV VIAL IV ONE (14:32)
[2023-07-17 15:11] LABS: Potassium Redraw 4.9 mmol/L (3.5-5.0)
[2023-07-17 16:47] LABS: Urine Appearance Extra Turbid; Urine Bilirubin Negative (Negative); Urine Blood 2+ (Negative); Urine Glucose Negative (Negative); Urine Ketones Negative (Negative); Urine Nitrite Negative (Negative); Urine Protein 2+ (>=100 mg/dL) (Negative); Urine Specific Gravity 1.009 (1.002-1.030); Urine Urobilinogen Negative (Negative); Urine pH 6.5 (5.0-8.0)
[2023-07-17 16:58] LABS: Urine Bacteria Absent /HPF (Absent); Urine Red Blood Cell 3+(>10/hpf) /HPF (0-Trace); Urine White Blood Cell 3+(>20/hpf) /HPF (0-Trace)
[2023-07-17 17:27] LABS: Urine Color Light-Yellow
[2023-07-17] MEDS ORDERED: Ondansetron ODT 4 mg TAB 4 MG TAB PO PRN (19:14)
[2023-07-17] MEDS ORDERED: Dextrose 50% Syringe 50 ml 25 GM/50 ML SYRINGE IV PUSH PRN (19:52)
[2023-07-17] MEDS: Cefepime 1 GM in Dextrose 1 GM/50 ML BAG IV SCH (21:41)
[2023-07-17] MEDS: Enoxaparin 40 MG/0.4 ML SYR SUBCUT SCH (21:41)
[2023-07-17] MEDS: Nystatin TOP POWDER 15 GM BTL TOPICAL SCH (21:57)
[2023-07-17 22:59] LABS: TSH Ultra Thyroid Stim Horm 14.63 mcIU/mL (0.34-5.60)
[2023-07-17 23:01] LABS: Free T4 0.82 ng/dL (0.61-1.12)
[2023-07-18 05:36] LABS: ABS Basophils 0.1 10^3/uL (0.0-0.1); ABS Eosinophils 0.2 10^3/uL (0.0-0.5); ABS Lymphocytes 0.9 10^3/uL (1.0-4.8); ABS Monocytes 0.5 10^3/uL (0.0-0.9); ABS Neutrophils 9.1 10^3/uL (1.5-7.6); Hematocrit 25.4 % (35-45); Hemoglobin 8.6 g/dL (11.5-14.3); Lymphocyte % 8.5 %; Mean Corpuscular Hemoglobin 30.8 pg (27-33); Mean Corpuscular Hgb Conc 33.8 g/dL (31-36); Mean Corpuscular Volume 91.1 fL (80-97); Mean Platelet Volume 8.6 fL (7.5-11.2); Platelet Count 463 10^3/uL (150-450); Red Blood Count 2.79 10^6/uL (3.63-4.92); Red Cell Distribution Width 20.3 % (12-17); White Blood Count 10.8 10^3/uL (3.8-11.8)
[2023-07-18 06:40] LABS: Calcium 7.5 mg/dL (8.6-10.3); Creatinine, Serum 1.15 mg/dL (0.51-0.95); Magnesium 1.8 mg/dL (1.9-2.7); Potassium 4.4 mmol/L (3.5-5.0); eGFR CKD-EPI 52.9 (>60)
[2023-07-18] MEDS ORDERED: ALOGLIPTIN 25 MG PO SCH (09:00)
[2023-07-18] MEDS: Magnesium Sulfate 2 gm BAG 2 GM/50 ML BAG IVPB ONE (10:48)
[2023-07-18] MEDS: Morphine 2 MG/ML SYRINGE IV ONE (21:09)
[2023-07-19] MEDS: Morphine 2 MG/ML SYRINGE IV ONE (00:52)
[2023-07-19 08:55] LABS: Calcium 7.4 mg/dL (8.6-10.3); Creatinine, Serum 1.14 mg/dL (0.51-0.95); Potassium 4.2 mmol/L (3.5-5.0); eGFR CKD-EPI 53.4 (>60)
[2023-07-19] MEDS: Azithromycin 500 mg/250 ml NS 500 MG/250 ML BAG IVPB ONE (21:36)
[2023-07-20 05:47] LABS: ABS Basophils 0.1 10^3/uL (0.0-0.1); ABS Eosinophils 0.6 10^3/uL (0.0-0.5); ABS Lymphocytes 1.1 10^3/uL (1.0-4.8); ABS Monocytes 0.6 10^3/uL (0.0-0.9); ABS Neutrophils 7.4 10^3/uL (1.5-7.6); Eosinophil % 6.1 %; Hematocrit 23.8 % (35-45); Hemoglobin 8.1 g/dL (11.5-14.3); Lymphocyte % 10.7 %; Mean Corpuscular Hemoglobin 31.3 pg (27-33); Mean Corpuscular Hgb Conc 34.2 g/dL (31-36); Mean Corpuscular Volume 91.6 fL (80-97); Mean Platelet Volume 8.2 fL (7.5-11.2); Platelet Count 403 10^3/uL (150-450); Red Blood Count 2.59 10^6/uL (3.63-4.92); Red Cell Distribution Width 21.9 % (12-17); White Blood Count 9.8 10^3/uL (3.8-11.8)
[2023-07-20 06:14] LABS: Calcium 7.2 mg/dL (8.6-10.3); Creatinine, Serum 1.14 mg/dL (0.51-0.95); Phosphorus 3.6 mg/dL (2.5-5.0); Potassium 4.4 mmol/L (3.5-5.0); eGFR CKD-EPI 53.4 (>60)
[2023-07-20 10:05] VITALS: BP 134/75
== END 2023-07-20 13:35 | DRG 690 ==
LOC: ED 10:20 → SUATTDRO 17:28 → EDHOLD 17:28 → MEDTELE 17:51
PROVIDERS: ADMIT Internal Medicine; ATTEND Student in an Organized Health Care Education/Training Program

== ENCOUNTER 2023-07-23 17:28 | Inpatient (IN) ==
[2023-07-23] MEDS: NS 0.9% 500 ml BAG 500 ML IV ONE (19:39)
[2023-07-23] MEDS: Haloperidol 5 mg/ml SDV IV/IM 5 MG/ML AMP IV SLOW PU ONE (19:39)
[2023-07-23 20:00] LABS: ABS Basophils 0.1 10^3/uL (0.0-0.1); ABS Eosinophils 0.6 10^3/uL (0.0-0.5); ABS Lymphocytes 1.1 10^3/uL (1.0-4.8); ABS Monocytes 0.6 10^3/uL (0.0-0.9); ABS Neutrophils 6.4 10^3/uL (1.5-7.6); ABS Nucleated RBC 0.01 10^3/ul; Eosinophil % 6.3 %; Hematocrit 27.4 % (35-45); Hemoglobin 9.3 g/dL (11.5-14.3); Mean Corpuscular Hemoglobin 31.1 pg (27-33); Mean Corpuscular Hgb Conc 33.9 g/dL (31-36); Mean Corpuscular Volume 91.7 fL (80-97); Mean Platelet Volume 8.1 fL (7.5-11.2); Nucleated Red Blood Cells % 0.1 %/100WBC (0.0-0.8); Platelet Count 575 10^3/uL (150-450); Red Blood Count 2.99 10^6/uL (3.63-4.92); Red Cell Distribution Width 21.7 % (12-17); White Blood Count 8.7 10^3/uL (3.8-11.8)
[2023-07-23 20:24] LABS: Albumin 2.4 g/dL (3.2-5.2); Albumin/Globulin Ratio 0.8 (1-3); C Reactive Protein 16.67 mg/L (<8.01); Calcium 7.9 mg/dL (8.6-10.3); Creatinine, Serum 1.21 mg/dL (0.51-0.95); Phosphorus 3.5 mg/dL (2.5-5.0); Potassium 5.2 mmol/L (3.5-5.0); Total Bilirubin 0.8 mg/dL (0.2-1.0); Total Protein 5.4 g/dL (6.4-8.9); eGFR CKD-EPI 49.7 (>60)
[2023-07-23 21:31] LABS: High Sensitivity Troponin 1 Hr 9 pg/mL (<15)
[2023-07-23 22:00] LABS: Urine Appearance Clear; Urine Bilirubin Negative (Negative); Urine Blood Negative (Negative); Urine Color Light-Yellow; Urine Glucose Negative (Negative); Urine Ketones Negative (Negative); Urine Nitrite Negative (Negative); Urine Protein 3+ (>=300 mg/dL) (Negative); Urine Specific Gravity 1.012 (1.002-1.030); Urine Urobilinogen Negative (Negative)
[2023-07-23] MEDS: Cefepime 1 GM in Dextrose 1 GM/50 ML BAG IV ONE (22:19)
[2023-07-23 22:20] LABS: Urine Bacteria Absent /HPF (Absent); Urine Red Blood Cell 1+(3-5/hpf) /HPF (0-Trace); Urine Squamous Epithelial Cell Present /HPF (Absent); Urine White Blood Cell 3+(>20/hpf) /HPF (0-Trace)
[2023-07-24] MEDS: Vancomycin 1,000 MG in NS 0.9% 250 ml 250 ML IVPB ONE (03:22)
[2023-07-24] MEDS ORDERED: Vancomycin per Pharmacy 1 EA NOTE FOLLOW UP SCH (04:00)
[2023-07-24] MEDS: Linezolid 600 MG IVPREMIX(*) 600 MG/300 ML BAG IVPB SCH ×2 (04:56→16:23)
[2023-07-24] MEDS: Enoxaparin 40 MG/0.4 ML SYR SUBCUT SCH (06:00)
[2023-07-24] MEDS: Furosemide 20 mg/2 ml IV VIAL IV SLOW PU ONE (10:09)
[2023-07-24 11:36] LABS: ABS Eosinophils 0.3 10^3/uL (0.0-0.5); ABS Lymphocytes 1.1 10^3/uL (1.0-4.8); ABS Monocytes 0.5 10^3/uL (0.0-0.9); ABS Neutrophils 6.5 10^3/uL (1.5-7.6); ABS Nucleated RBC 0.01 10^3/ul; Eosinophil % 3.2 %; Hematocrit 25.2 % (35-45); Hemoglobin 8.7 g/dL (11.5-14.3); Lymphocyte % 12.9 %; Mean Corpuscular Hemoglobin 31.4 pg (27-33); Mean Corpuscular Hgb Conc 34.7 g/dL (31-36); Mean Corpuscular Volume 90.5 fL (80-97); Mean Platelet Volume 7.6 fL (7.5-11.2); Nucleated Red Blood Cells % 0.1 %/100WBC (0.0-0.8); Platelet Count 553 10^3/uL (150-450); Red Blood Count 2.78 10^6/uL (3.63-4.92); Red Cell Distribution Width 22.3 % (12-17); White Blood Count 8.4 10^3/uL (3.8-11.8)
[2023-07-24 12:23] LABS: % Iron Saturation 34 % (15-55); .Transferrin < 75 mg/dL (203-362); ALT 32 U/L (7-52); AST 31 U/L (13-39); Albumin 2.4 g/dL (3.2-5.2); Albumin/Globulin Ratio 0.8 (1-3); Alkaline Phosphatase 180 U/L (35-149); Anion Gap 8 mmol/L (2-16); Blood Urea Nitrogen 15 mg/dL (6-24); C Reactive Protein 14.37 mg/L (<8.01); CO2 Carbon Dioxide 25 mmol/L (22-32); Calcium 7.8 mg/dL (8.6-10.3); Chloride 105 mmol/L (101-111); Creatinine, Serum 1.17 mg/dL (0.51-0.95); Glucose 69 mg/dL (70-100); Iron 36 ug/dL (50-212); Potassium 4.9 mmol/L (3.5-5.0); Sodium 138 mmol/L (135-145); Total Bilirubin 0.8 mg/dL (0.2-1.0); Total Iron Binding Capacity 105 mcg/dL (250-450); Total Protein 5.4 g/dL (6.4-8.9); Unsaturated Iron Binding 69 ug/dL; eGFR CKD-EPI 51.8 (>60)
[2023-07-24 12:24] LABS: Magnesium 1.9 mg/dL (1.9-2.7)
[2023-07-24 12:34] LABS: TSH Ultra Thyroid Stim Horm 19.98 mcIU/mL (0.34-5.60)
[2023-07-24 12:40] LABS: Ferritin 349.4 ng/mL (11-307)
[2023-07-24 12:47] LABS: Vitamin D Total 25(OH) 21.4 ng/mL (20-50)
[2023-07-24] MEDS: Nystatin TOP POWDER 15 GM BTL TOPICAL SCH (14:25)
[2023-07-24] MEDS: Ondansetron ODT 4 mg TAB 4 MG TAB PO PRN (16:22)
[2023-07-24] MEDS: cefTRIAXone 1 gm/50 mL D5W 1 GM/50 ML BAG IV SCH (20:48)
[2023-07-24 20:53] LABS: Free T3 3.26 pg/mL (2.5-3.9)
[2023-07-24 20:54] LABS: Free T4 1.18 ng/dL (0.61-1.12)
[2023-07-24] MEDS: Azithromycin 500 mg/250 ml NS 500 MG/250 ML BAG IVPB ONE (21:49)
[2023-07-25 06:21] LABS: ABS Basophils 0.1 10^3/uL (0.0-0.1); ABS Eosinophils 0.4 10^3/uL (0.0-0.5); ABS Lymphocytes 1.1 10^3/uL (1.0-4.8); ABS Monocytes 0.6 10^3/uL (0.0-0.9); ABS Neutrophils 4.4 10^3/uL (1.5-7.6); Eosinophil % 6.3 %; Hematocrit 23.1 % (35-45); Hemoglobin 7.9 g/dL (11.5-14.3); Lymphocyte % 16.6 %; Mean Corpuscular Hemoglobin 31.2 pg (27-33); Mean Corpuscular Hgb Conc 34.3 g/dL (31-36); Mean Corpuscular Volume 90.8 fL (80-97); Mean Platelet Volume 7.8 fL (7.5-11.2); Platelet Count 498 10^3/uL (150-450); Red Blood Count 2.54 10^6/uL (3.63-4.92); Red Cell Distribution Width 22.4 % (12-17); White Blood Count 6.5 10^3/uL (3.8-11.8)
[2023-07-25] MEDS ORDERED: Polyethylene Glycol 3350 17 GM PACKET PO PRN (07:27)
[2023-07-25] MEDS ORDERED: Magnesium Hydroxide LIQ 30 ML UDC PO PRN (07:27)
[2023-07-25] MEDS ORDERED: Senna TAB 8.6 mg TAB PO PRN (07:27)
[2023-07-25 07:35] LABS: Albumin 2.1 g/dL (3.2-5.2); Albumin/Globulin Ratio 0.8 (1-3); Calcium 7.5 mg/dL (8.6-10.3); Creatinine, Serum 1.29 mg/dL (0.51-0.95); Globulin 2.5 g/dL (2-4); Magnesium 1.9 mg/dL (1.9-2.7); Potassium 4.4 mmol/L (3.5-5.0); Total Bilirubin 0.5 mg/dL (0.2-1.0); Total Protein 4.6 g/dL (6.4-8.9); eGFR CKD-EPI 46.1 (>60)
[2023-07-25 08:18] LABS: C Reactive Protein 11.75 mg/L (<8.01)
[2023-07-25] MEDS ORDERED: Albuterol HFA INHALER 8 gm MDI INH PRN (09:57)
[2023-07-25] MEDS: Magnesium Hydroxide LIQ 30 ML UDC PO SCH (11:05)
[2023-07-26 07:55] LABS: ABS Basophils 0.1 10^3/uL (0.0-0.1); ABS Eosinophils 0.5 10^3/uL (0.0-0.5); ABS Lymphocytes 1.2 10^3/uL (1.0-4.8); ABS Monocytes 0.5 10^3/uL (0.0-0.9); ABS Neutrophils 4.5 10^3/uL (1.5-7.6); ABS Nucleated RBC 0.01 10^3/ul; Eosinophil % 7.4 %; Hematocrit 25.4 % (35-45); Hemoglobin 8.6 g/dL (11.5-14.3); Lymphocyte % 17.2 %; Mean Corpuscular Hemoglobin 31.3 pg (27-33); Mean Corpuscular Volume 92.1 fL (80-97); Mean Platelet Volume 7.9 fL (7.5-11.2); Nucleated Red Blood Cells % 0.1 %/100WBC (0.0-0.8); Platelet Count 540 10^3/uL (150-450); Red Blood Count 2.75 10^6/uL (3.63-4.92); White Blood Count 6.8 10^3/uL (3.8-11.8)
[2023-07-26 08:12] LABS: Albumin 2.2 g/dL (3.2-5.2); Albumin/Globulin Ratio 0.8 (1-3); Calcium 7.7 mg/dL (8.6-10.3); Creatinine, Serum 1.34 mg/dL (0.51-0.95); Globulin 2.9 g/dL (2-4); Magnesium 2.3 mg/dL (1.9-2.7); Potassium 4.6 mmol/L (3.5-5.0); Total Bilirubin 0.6 mg/dL (0.2-1.0); Total Protein 5.1 g/dL (6.4-8.9)
[2023-07-26] MEDS: Tiotropium Brom/Olodaterol MDI (ACUTE) INH SCH (08:20)
[2023-07-26 14:49] LABS: Prolactin 20.6 ng/mL (1.0-25.0)
[2023-07-26] MEDS: Azithromycin 500 mg/250 ml NS 500 MG/250 ML BAG IVPB SCH (16:54)
[2023-07-26] MEDS: Dextrose 50% Syringe 50 ml 25 GM/50 ML SYRINGE IV PUSH PRN (16:54)
[2023-07-27] MEDS: HYDROmorphone 0.5 MG/0.5 ML SYRINGE IV SLOW PU ONE (04:49)
[2023-07-27 06:30] LABS: ABS Basophils 0.1 10^3/uL (0.0-0.1); ABS Eosinophils 0.6 10^3/uL (0.0-0.5); ABS Lymphocytes 1.3 10^3/uL (1.0-4.8); ABS Monocytes 0.5 10^3/uL (0.0-0.9); ABS Neutrophils 4.6 10^3/uL (1.5-7.6); Eosinophil % 8.6 %; Hematocrit 25.8 % (35-45); Hemoglobin 8.8 g/dL (11.5-14.3); Lymphocyte % 18.7 %; Mean Corpuscular Hemoglobin 31.3 pg (27-33); Mean Corpuscular Hgb Conc 33.9 g/dL (31-36); Mean Corpuscular Volume 92.3 fL (80-97); Mean Platelet Volume 7.4 fL (7.5-11.2); Platelet Count 542 10^3/uL (150-450); Red Cell Distribution Width 21.8 % (12-17); White Blood Count 7.1 10^3/uL (3.8-11.8)
[2023-07-27 07:02] LABS: Calcium 7.5 mg/dL (8.6-10.3); Creatinine, Serum 1.23 mg/dL (0.51-0.95); Magnesium 2.2 mg/dL (1.9-2.7); Potassium 4.4 mmol/L (3.5-5.0); eGFR CKD-EPI 48.8 (>60)
[2023-07-27] MEDS: D5LR 1000 ml BAG 1,000 ML IV SCH (12:05)
[2023-07-27] MEDS: Acetaminophen IV 1 GM/100ML 1,000 MG/100 ML BAG IV PRN (21:14)
[2023-07-28 06:44] LABS: Calcium 7.3 mg/dL (8.6-10.3); Creatinine, Serum 1.01 mg/dL (0.51-0.95); Magnesium 2.1 mg/dL (1.9-2.7); Potassium 4.4 mmol/L (3.5-5.0); eGFR CKD-EPI 61.8 (>60)
[2023-07-28 06:52] LABS: ABS Basophils 0.1 10^3/uL (0.0-0.1); ABS Eosinophils 0.7 10^3/uL (0.0-0.5); ABS Lymphocytes 1.4 10^3/uL (1.0-4.8); ABS Monocytes 0.4 10^3/uL (0.0-0.9); ABS Neutrophils 4.1 10^3/uL (1.5-7.6); ABS Nucleated RBC 0.01 10^3/ul; Eosinophil % 10.2 %; Hemoglobin 7.9 g/dL (11.5-14.3); Lymphocyte % 21.7 %; Mean Corpuscular Hemoglobin 30.7 pg (27-33); Mean Platelet Volume 7.7 fL (7.5-11.2); Nucleated Red Blood Cells % 0.1 %/100WBC (0.0-0.8); Platelet Count 562 10^3/uL (150-450); Red Blood Count 2.59 10^6/uL (3.63-4.92); Red Cell Distribution Width 21.4 % (12-17); White Blood Count 6.7 10^3/uL (3.8-11.8)
[2023-07-29] MEDS: Metoprolol Tartrate 5 mg VIAL 5 ml VIAL (1 mg/ml) IV SCH (16:17)
[2023-07-29] MEDS: Haloperidol 5 mg/ml SDV IV/IM 5 MG/ML AMP IV SLOW PU ONE (17:22)
[2023-07-30 06:44] LABS: ABS Basophils 0.1 10^3/uL (0.0-0.1); ABS Eosinophils 0.6 10^3/uL (0.0-0.5); ABS Lymphocytes 1.2 10^3/uL (1.0-4.8); ABS Monocytes 0.4 10^3/uL (0.0-0.9); ABS Neutrophils 5.7 10^3/uL (1.5-7.6); ABS Nucleated RBC 0.01 10^3/ul; Eosinophil % 7.7 %; Hematocrit 25.7 % (35-45); Hemoglobin 8.8 g/dL (11.5-14.3); Mean Corpuscular Hemoglobin 31.5 pg (27-33); Mean Corpuscular Hgb Conc 34.3 g/dL (31-36); Mean Corpuscular Volume 91.7 fL (80-97); Nucleated Red Blood Cells % 0.1 %/100WBC (0.0-0.8); Platelet Count 566 10^3/uL (150-450); Red Cell Distribution Width 21.7 % (12-17)
[2023-07-30 07:17] LABS: Calcium 7.3 mg/dL (8.6-10.3); Creatinine, Serum 1.02 mg/dL (0.51-0.95); Magnesium 1.8 mg/dL (1.9-2.7); Potassium 4.1 mmol/L (3.5-5.0); eGFR CKD-EPI 61.1 (>60)
[2023-07-31] MEDS: Enoxaparin 40 MG/0.4 ML SYR SUBCUT SCH (00:27)
[2023-08-03 03:32] LABS: Rapid COVID-19 Molecular Undetected (Undetected)
[2023-08-03 09:52] VITALS: BP 158/64
== END 2023-08-03 12:05 | DRG 70 ==
LOC: ED 17:28 → EDHOLD 17:28 → SUATTDRO 22:20 → MEDTELE 07-24 10:41 → SUATTDRO 07-25 15:14 → MED 07-30 16:26
PROVIDERS: ADMIT Internal Medicine; ATTEND Student in an Organized Health Care Education/Training Program

== ENCOUNTER 2023-08-10 15:33 | Inpatient (IN) ==
[2023-08-10 17:19] LABS: ABS Basophils 0.1 10^3/uL (0.0-0.1); ABS Eosinophils 0.5 10^3/uL (0.0-0.5); ABS Lymphocytes 1.1 10^3/uL (1.0-4.8); ABS Monocytes 0.5 10^3/uL (0.0-0.9); ABS Neutrophils 16.4 10^3/uL (1.5-7.6); ABS Nucleated RBC 0.01 10^3/ul; Eosinophil % 2.5 %; Hematocrit 29.8 % (35-45); Hemoglobin 9.9 g/dL (11.5-14.3); Lymphocyte % 6.1 %; Mean Corpuscular Hemoglobin 30.8 pg (27-33); Mean Corpuscular Hgb Conc 33.1 g/dL (31-36); Mean Corpuscular Volume 92.9 fL (80-97); Mean Platelet Volume 7.1 fL (7.5-11.2); Nucleated Red Blood Cells % 0.1 %/100WBC (0.0-0.8); Platelet Count 721 10^3/uL (150-450); Red Blood Count 3.21 10^6/uL (3.63-4.92); Red Cell Distribution Width 21.2 % (12-17); White Blood Count 18.6 10^3/uL (3.8-11.8)
[2023-08-10] MEDS: Haloperidol 5 mg/ml SDV IV/IM 5 MG/ML AMP IM ONE (17:20)
[2023-08-10] MEDS: Lactated Ringers 1000 ml BAG 1,000 ML IV ONE (17:35)
[2023-08-10] MEDS: Cefepime 2 GM in Dextrose 2 GM/50 ML BAG IV ONE (17:35)
[2023-08-10 18:02] LABS: ALT 24 U/L (7-52); AST 37 U/L (13-39); Acetaminophen < 15 mcg/mL; Albumin 2.2 g/dL (3.2-5.2); Albumin/Globulin Ratio 0.6 (1-3); Alcohol, S < 13 mg/dL (<13); Alkaline Phosphatase 212 U/L (35-149); Anion Gap 7 mmol/L (2-16); Blood Urea Nitrogen 14 mg/dL (6-24); CO2 Carbon Dioxide 25 mmol/L (22-32); Calcium 7.5 mg/dL (8.6-10.3); Chloride 105 mmol/L (101-111); Creatinine, Serum 1.18 mg/dL (0.51-0.95); Globulin 3.5 g/dL (2-4); Glucose 61 mg/dL (70-100); Potassium 5.8 mmol/L (3.5-5.0); Sodium 137 mmol/L (135-145); Total Bilirubin 0.6 mg/dL (0.2-1.0); Total Protein 5.7 g/dL (6.4-8.9); eGFR CKD-EPI 51.3 (>60)
[2023-08-10] MEDS: Azithromycin 500 mg/250 ml NS 500 MG/250 ML BAG IVPB ONE (18:10)
[2023-08-10 19:34] LABS: C Reactive Protein 71.67 mg/L (<8.01)
[2023-08-10] MEDS ORDERED: Dextrose 50% Syringe 50 ml 25 GM/50 ML SYRINGE IV PUSH PRN (19:35)
[2023-08-10 20:07] LABS: TSH Ultra Thyroid Stim Horm 11.83 mcIU/mL (0.34-5.60)
[2023-08-10 20:09] LABS: Free T4 1.12 ng/dL (0.61-1.12)
[2023-08-10 20:14] LABS: Total T3 61 ng/dL (87-178)
[2023-08-10 20:28] LABS: Erythrocyte Sed Rate 91 mm/Hr (0-29)
[2023-08-10] MEDS: Azithromycin 500 mg/250 ml NS 500 MG/250 ML BAG IVPB SCH (22:52)
[2023-08-10] MEDS: Enoxaparin 40 MG/0.4 ML SYR SUBCUT SCH (23:19)
[2023-08-10] MEDS: oxyCODONE/Acetamin 5/325 mg TAB PO PRN (23:22)
[2023-08-11] MEDS: SODIUM ZIRCONIUM CYCLOSILICATE 10 GM PACKET PO ONE (02:23)
[2023-08-11] MEDS: Tiotropium Brom/Olodaterol MDI (ACUTE) INH SCH (07:37)
[2023-08-11] MEDS ORDERED: cefTRIAXone 1 gm/50 mL D5W 1 GM/50 ML BAG IV SCH (09:00)
[2023-08-11] MEDS: cefTRIAXone 1 gm/50 mL D5W 1 GM/50 ML BAG IV SCH (09:35)
[2023-08-11 09:36] LABS: ABS Basophils 0.1 10^3/uL (0.0-0.1); ABS Eosinophils 0.4 10^3/uL (0.0-0.5); ABS Lymphocytes 1.4 10^3/uL (1.0-4.8); ABS Monocytes 0.8 10^3/uL (0.0-0.9); ABS Neutrophils 13.9 10^3/uL (1.5-7.6); ABS Nucleated RBC 0.01 10^3/ul; Eosinophil % 2.7 %; Hematocrit 29.1 % (35-45); Hemoglobin 9.1 g/dL (11.5-14.3); Lymphocyte % 8.2 %; Mean Corpuscular Hemoglobin 30.5 pg (27-33); Mean Corpuscular Hgb Conc 31.4 g/dL (31-36); Mean Corpuscular Volume 97.3 fL (80-97); Mean Platelet Volume 6.7 fL (7.5-11.2); Nucleated Red Blood Cells % 0.1 %/100WBC (0.0-0.8); Platelet Count 589 10^3/uL (150-450); Red Cell Distribution Width 21.4 % (12-17); White Blood Count 16.6 10^3/uL (3.8-11.8)
[2023-08-11 09:59] LABS: Albumin/Globulin Ratio 0.6 (1-3); Calcium 7.4 mg/dL (8.6-10.3); Creatinine, Serum 1.27 mg/dL (0.51-0.95); Globulin 3.2 g/dL (2-4); Magnesium 1.9 mg/dL (1.9-2.7); Potassium 5.8 mmol/L (3.5-5.0); Total Bilirubin 0.6 mg/dL (0.2-1.0); Total Protein 5.2 g/dL (6.4-8.9); eGFR CKD-EPI 46.9 (>60)
[2023-08-11] MEDS: Nystatin TOP POWDER 15 GM BTL TOPICAL SCH (11:35)
[2023-08-11] MEDS: Azithromycin 500 mg/250 ml NS 500 MG/250 ML BAG IVPB SCH (21:21)
[2023-08-12] MEDS: SODIUM ZIRCONIUM CYCLOSILICATE 10 GM PACKET PO ONE (00:05)
[2023-08-12 04:40] LABS: Urine Appearance Extra Turbid; Urine Bilirubin Negative (Negative); Urine Blood 2+ (Negative); Urine Glucose Negative (Negative); Urine Ketones Negative (Negative); Urine Nitrite Negative (Negative); Urine Protein 2+ (>=100 mg/dL) (Negative); Urine Specific Gravity 1.012 (1.002-1.030); Urine Urobilinogen Negative (Negative)
[2023-08-12 04:55] LABS: Urine Bacteria Absent /HPF (Absent); Urine Red Blood Cell 3+(>10/hpf) /HPF (0-Trace); Urine White Blood Cell 3+(>20/hpf) /HPF (0-Trace)
[2023-08-12 05:14] LABS: Urine Color Yellow
[2023-08-12 08:08] LABS: C Reactive Protein 115.44 mg/L (<8.01); Calcium 7.3 mg/dL (8.6-10.3); Creatinine, Serum 1.15 mg/dL (0.51-0.95); Magnesium 1.9 mg/dL (1.9-2.7); Potassium 4.9 mmol/L (3.5-5.0); eGFR CKD-EPI 52.9 (>60)
[2023-08-12 08:19] LABS: ABS Basophils 0.1 10^3/uL (0.0-0.1); ABS Eosinophils 0.9 10^3/uL (0.0-0.5); ABS Lymphocytes 1.2 10^3/uL (1.0-4.8); ABS Monocytes 0.7 10^3/uL (0.0-0.9); ABS Neutrophils 12.9 10^3/uL (1.5-7.6); ABS Nucleated RBC 0.01 10^3/ul; Eosinophil % 5.8 %; Hematocrit 22.6 % (35-45); Hemoglobin 7.6 g/dL (11.5-14.3); Lymphocyte % 7.7 %; Mean Corpuscular Hemoglobin 31.5 pg (27-33); Mean Corpuscular Hgb Conc 33.8 g/dL (31-36); Mean Corpuscular Volume 93.1 fL (80-97); Mean Platelet Volume 7.2 fL (7.5-11.2); Nucleated Red Blood Cells % 0.1 %/100WBC (0.0-0.8); Platelet Count 667 10^3/uL (150-450); Red Blood Count 2.43 10^6/uL (3.63-4.92); Red Cell Distribution Width 20.3 % (12-17); White Blood Count 15.9 10^3/uL (3.8-11.8)
[2023-08-13 05:37] LABS: ABS Basophils 0.1 10^3/uL (0.0-0.1); ABS Eosinophils 0.3 10^3/uL (0.0-0.5); ABS Monocytes 0.4 10^3/uL (0.0-0.9); Eosinophil % 2.2 %; Hematocrit 24.8 % (35-45); Hemoglobin 8.4 g/dL (11.5-14.3); Lymphocyte % 6.9 %; Mean Corpuscular Volume 91.2 fL (80-97); Mean Platelet Volume 7.3 fL (7.5-11.2); Platelet Count 633 10^3/uL (150-450); Red Blood Count 2.72 10^6/uL (3.63-4.92); White Blood Count 13.8 10^3/uL (3.8-11.8)
[2023-08-13 05:58] LABS: C Reactive Protein 76.18 mg/L (<8.01); Creatinine, Serum 1.27 mg/dL (0.51-0.95); Potassium 4.9 mmol/L (3.5-5.0); eGFR CKD-EPI 46.9 (>60)
[2023-08-13] MEDS: cefTRIAXone 1 gm/50 mL D5W 1 GM/50 ML BAG IV SCH (14:04)
[2023-08-13] MEDS: Haloperidol 5 mg/ml SDV IV/IM 5 MG/ML AMP IV SLOW PU PRN (20:20)
[2023-08-14 09:53] LABS: ABS Basophils 0.1 10^3/uL (0.0-0.1); ABS Eosinophils 0.5 10^3/uL (0.0-0.5); ABS Lymphocytes 1.1 10^3/uL (1.0-4.8); ABS Monocytes 0.5 10^3/uL (0.0-0.9); ABS Neutrophils 7.8 10^3/uL (1.5-7.6); ABS Nucleated RBC 0.01 10^3/ul; Eosinophil % 5.1 %; Hematocrit 24.2 % (35-45); Hemoglobin 8.3 g/dL (11.5-14.3); Lymphocyte % 11.1 %; Mean Corpuscular Hemoglobin 31.3 pg (27-33); Mean Corpuscular Hgb Conc 34.3 g/dL (31-36); Mean Corpuscular Volume 91.4 fL (80-97); Mean Platelet Volume 6.9 fL (7.5-11.2); Nucleated Red Blood Cells % 0.1 %/100WBC (0.0-0.8); Platelet Count 603 10^3/uL (150-450); Red Blood Count 2.65 10^6/uL (3.63-4.92); Red Cell Distribution Width 20.5 % (12-17)
[2023-08-14 10:52] LABS: C Reactive Protein 73.72 mg/L (<8.01); Creatinine, Serum 1.25 mg/dL (0.51-0.95); Potassium 4.4 mmol/L (3.5-5.0); eGFR CKD-EPI 47.8 (>60)
[2023-08-15 08:07] LABS: ABS Basophils 0.1 10^3/uL (0.0-0.1); ABS Eosinophils 0.6 10^3/uL (0.0-0.5); ABS Lymphocytes 1.3 10^3/uL (1.0-4.8); ABS Monocytes 0.5 10^3/uL (0.0-0.9); ABS Neutrophils 6.9 10^3/uL (1.5-7.6); ABS Nucleated RBC 0.01 10^3/ul; Eosinophil % 6.9 %; Hematocrit 27.3 % (35-45); Hemoglobin 9.3 g/dL (11.5-14.3); Lymphocyte % 13.8 %; Mean Corpuscular Hemoglobin 31.3 pg (27-33); Mean Corpuscular Hgb Conc 34.2 g/dL (31-36); Mean Corpuscular Volume 91.5 fL (80-97); Mean Platelet Volume 7.1 fL (7.5-11.2); Nucleated Red Blood Cells % 0.1 %/100WBC (0.0-0.8); Platelet Count 695 10^3/uL (150-450); Red Blood Count 2.98 10^6/uL (3.63-4.92); Red Cell Distribution Width 20.5 % (12-17); White Blood Count 9.4 10^3/uL (3.8-11.8)
[2023-08-15 08:47] LABS: Calcium 7.5 mg/dL (8.6-10.3); Creatinine, Serum 1.21 mg/dL (0.51-0.95); Potassium 4.6 mmol/L (3.5-5.0); eGFR CKD-EPI 49.7 (>60)
[2023-08-15] MEDS: Polyethylene Glycol 3350 17 GM PACKET PO SCH (11:42)
[2023-08-15 17:32] LABS: Anaplasma phagocytophilum Negative (Negative); B. miyamotoi PCR, B Negative (Negative); Babesia divergens/MO-1 Negative (Negative); Babesia ducani Negative (Negative); Ehrlichia chaffeensis Negative (Negative); Ehrlichia ewingii/canis Negative (Negative); Ehrlichia muris eauclairensis Negative (Negative)
[2023-08-16 05:32] VITALS: BP 132/48
[2023-08-17 15:05] LABS: IgG Immunoblot Negative (Negative); IgM Immunoblot Negative (Negative)
== END 2023-08-16 10:17 | DRG 70 ==
LOC: EDHOLD 15:33 → ED 15:33 → SUATTDRO 18:17 → MED 20:15 → SUATTDRO 08-12 10:00
PROVIDERS: ADMIT Student in an Organized Health Care Education/Training Program; ATTEND Internal Medicine

== ENCOUNTER 2023-09-02 19:56 | Observation (INO) ==
[2023-09-02 20:54] LABS: ABS Basophils 0.1 10^3/uL (0.0-0.1); ABS Eosinophils 0.5 10^3/uL (0.0-0.5); ABS Monocytes 0.6 10^3/uL (0.0-0.9); ABS Neutrophils 8.7 10^3/uL (1.5-7.6); ABS Nucleated RBC 0.01 10^3/ul; Eosinophil % 4.8 %; Hematocrit 31.6 % (35-45); Hemoglobin 10.6 g/dL (11.5-14.3); Lymphocyte % 9.5 %; Mean Corpuscular Hemoglobin 31.1 pg (27-33); Mean Corpuscular Hgb Conc 33.5 g/dL (31-36); Mean Corpuscular Volume 92.8 fL (80-97); Mean Platelet Volume 7.3 fL (7.5-11.2); Nucleated Red Blood Cells % 0.1 %/100WBC (0.0-0.8); Platelet Count 689 10^3/uL (150-450); Red Cell Distribution Width 17.2 % (12-17); White Blood Count 10.9 10^3/uL (3.8-11.8)
[2023-09-02 21:17] LABS: High Sens Troponin Baseline 6 pg/mL (<15)
[2023-09-02] MEDS: NS 0.9% 1000 ml BAG 1,000 ML IV SCH (21:41)
[2023-09-02] MEDS: Ondansetron 4 mg VIAL 2 MG/ML 2 ml VIAL IV ONE (21:41)
[2023-09-02 21:49] LABS: INR 1.13 (0.83-1.13)
[2023-09-02 22:32] LABS: ALT 20 U/L (7-52); Albumin 2.3 g/dL (3.2-5.2); Albumin/Globulin Ratio 0.7 (1-3); Alkaline Phosphatase 162 U/L (35-149); Anion Gap 6 mmol/L (2-16); Blood Urea Nitrogen 17 mg/dL (6-24); CO2 Carbon Dioxide 23 mmol/L (22-32); Chloride 105 mmol/L (101-111); Creatinine, Serum 1.15 mg/dL (0.51-0.95); Globulin 3.5 g/dL (2-4); Glucose 87 mg/dL (70-100); Lipase 27 U/L (11.0-82.0); Magnesium 2.2 mg/dL (1.9-2.7); Sodium 134 mmol/L (135-145); Total Bilirubin 0.4 mg/dL (0.2-1.0); Total Protein 5.8 g/dL (6.4-8.9); eGFR CKD-EPI 52.9 (>60)
[2023-09-02] MEDS: Iodixanol (CONTRAST) 320 MG/ML 100 ML SDV IV ONE (22:55)
[2023-09-02] MEDS ORDERED: Furosemide 40 mg/4 ml IV VIAL IV SLOW PU ONE (23:06)
[2023-09-02 23:47] LABS: Venous Bicarbonate HCO3 22.2 mmol/L (24-28)
[2023-09-02] MEDS: Furosemide 40 mg/4 ml IV VIAL IV SLOW PU ONE (23:50)
[2023-09-02 23:53] LABS: Urine Appearance Turbid; Urine Bilirubin Negative (Negative); Urine Blood Negative (Negative); Urine Color Yellow; Urine Glucose Negative (Negative); Urine Ketones Negative (Negative); Urine Nitrite Negative (Negative); Urine Protein 2+ (>=100 mg/dL) (Negative); Urine Specific Gravity 1.014 (1.002-1.030); Urine Urobilinogen Negative (Negative)
[2023-09-03 00:03] LABS: Urine Bacteria 2+ /HPF (Absent); Urine Red Blood Cell 1+(3-5/hpf) /HPF (0-Trace); Urine Transitional Epithelial Present /HPF (Absent); Urine White Blood Cell 3+(>20/hpf) /HPF (0-Trace)
[2023-09-03 00:15] LABS: High Sensitivity Troponin 1 Hr 6 pg/mL (<15)
[2023-09-03] MEDS ORDERED: cefTRIAXone 1 gm/50 mL D5W 1 GM/50 ML BAG IV ONE (00:39)
[2023-09-03] MEDS: cefTRIAXone 1 gm/50 mL D5W 1 GM/50 ML BAG IV ONE (01:05)
[2023-09-03 01:30] LABS: Potassium Redraw 5.5 mmol/L (3.5-5.0)
[2023-09-03] MEDS: Sodium Polystyrene ORAL.SUSP 15 GM/60 ML BTL PO ONE (04:57)
[2023-09-03] MEDS ORDERED: Magnesium Hydroxide LIQ 30 ML UDC PO PRN (06:12)
[2023-09-03] MEDS ORDERED: Ondansetron ODT 4 mg TAB 4 MG TAB PO PRN (06:30)
[2023-09-03 07:06] LABS: Hematocrit 27.2 % (35-45); Hemoglobin 9.2 g/dL (11.5-14.3); Mean Corpuscular Hemoglobin 31.6 pg (27-33); Mean Corpuscular Hgb Conc 33.8 g/dL (31-36); Mean Corpuscular Volume 93.4 fL (80-97); Mean Platelet Volume 7.3 fL (7.5-11.2); Platelet Count 520 10^3/uL (150-450); Red Blood Count 2.92 10^6/uL (3.63-4.92); Red Cell Distribution Width 16.8 % (12-17); White Blood Count 11.4 10^3/uL (3.8-11.8)
[2023-09-03 07:31] LABS: Calcium 7.4 mg/dL (8.6-10.3); Creatinine, Serum 1.26 mg/dL (0.51-0.95); Potassium 5.2 mmol/L (3.5-5.0); eGFR CKD-EPI 47.4 (>60)
[2023-09-03 07:37] LABS: ABS Basophils 0.1 10^3/uL (0.0-0.1); ABS Eosinophils 0.1 10^3/uL (0.0-0.5); ABS Lymphocytes 1.2 10^3/uL (1.0-4.8); ABS Monocytes 0.5 10^3/uL (0.0-0.9); ABS Neutrophils 9.5 10^3/uL (1.5-7.6); Eosinophil % 0.6 %; Lymphocyte % 10.6 %
[2023-09-03] MEDS ORDERED: Haloperidol 5 mg/ml SDV IV/IM 5 MG/ML AMP IM ONE (07:46)
[2023-09-03] MEDS: Haloperidol 5 mg/ml SDV IV/IM 5 MG/ML AMP IM ONE (07:59)
[2023-09-03] MEDS ORDERED: Enoxaparin 40 MG/0.4 ML SYR SUBCUT SCH (08:00)
[2023-09-03] MEDS ORDERED: Zinc Oxide 40% (TOPICAL) TUBE TOPICAL SCH ×2 (08:00)
[2023-09-03] MEDS ORDERED: Nystatin TOP POWDER 15 GM BTL TOPICAL SCH (09:00)
[2023-09-03] MEDS: Nystatin TOP POWDER 15 GM BTL TOPICAL SCH (09:43)
[2023-09-03] MEDS: Enoxaparin 40 MG/0.4 ML SYR SUBCUT SCH (10:07)
[2023-09-03] MEDS: Magnesium Hydroxide LIQ 30 ML UDC PO PRN (21:23)
[2023-09-04 10:16] VITALS: BP 163/67
[2023-09-04] MEDS ORDERED: SODIUM ZIRCONIUM CYCLOSILICATE 10 GM PACKET PO ONE (11:47)
[2023-09-04] MEDS: SODIUM ZIRCONIUM CYCLOSILICATE 10 GM PACKET PO ONE (12:45)
[2023-09-04 13:33] LABS: Urine Appearance Extra Turbid; Urine Bilirubin Negative (Negative); Urine Blood 2+ (Negative); Urine Glucose Negative (Negative); Urine Ketones Negative (Negative); Urine Nitrite Negative (Negative); Urine Protein 2+ (>=100 mg/dL) (Negative); Urine Specific Gravity 1.012 (1.002-1.030); Urine Urobilinogen Negative (Negative); Urine pH 6.5 (5.0-8.0)
[2023-09-04 14:04] LABS: Urine Bacteria 2+ /HPF (Absent); Urine Red Blood Cell 3+(>10/hpf) /HPF (0-Trace); Urine Squamous Epithelial Cell Present /HPF (Absent); Urine White Blood Cell 3+(>20/hpf) /HPF (0-Trace)
[2023-09-04 15:10] LABS: Urine Color Light-Yellow
== END 2023-09-04 14:45 ==
LOC: ED 19:56 → EDHOLD 19:56 → MED 09-03 08:04
PROVIDERS: ADMIT Hospitalist; ATTEND Internal Medicine

== ENCOUNTER 2024-01-20 18:25 | Inpatient (IN) ==
[2024-01-20 20:13] LABS: ABS Basophils 0.2 10^3/uL (0.0-0.1); ABS Eosinophils 0.1 10^3/uL (0.0-0.5); ABS Lymphocytes 1.2 10^3/uL (1.0-4.8); ABS Monocytes 0.7 10^3/uL (0.0-0.9); ABS Neutrophils 19.3 10^3/uL (1.5-7.6); ABS Nucleated RBC 0.01 10^3/ul; Eosinophil % 0.6 %; Hematocrit 27.9 % (35-45); Hemoglobin 8.9 g/dL (11.5-14.3); Lymphocyte % 5.4 %; Mean Corpuscular Hemoglobin 27.2 pg (27-33); Mean Corpuscular Hgb Conc 31.8 g/dL (31-36); Mean Corpuscular Volume 85.6 fL (80-97); Mean Platelet Volume 6.7 fL (7.5-11.2); Platelet Count 956 10^3/uL (150-450); Red Blood Count 3.26 10^6/uL (3.63-4.92); Red Cell Distribution Width 17.8 % (12-17); White Blood Count 21.5 10^3/uL (3.8-11.8)
[2024-01-20 20:31] LABS: INR 1.13 (0.85-1.14)
[2024-01-20] MEDS: Piperacillin/Tazobac 3.375 BAG 3.375 GM/100 ML BAG IV ONE (20:40)
[2024-01-20 20:42] LABS: High Sens Troponin Baseline 8 pg/mL (<15)
[2024-01-20 20:51] LABS: Venous Bicarbonate HCO3 22.2 mmol/L (24-28)
[2024-01-20 20:51] LABS: ALT 23 U/L (7-52); AST 29 U/L (13-39); Albumin 1.8 g/dL (3.2-5.2); Albumin/Globulin Ratio 0.5 (1-3); Alkaline Phosphatase 209 U/L (35-149); Anion Gap 5 mmol/L (2-16); Blood Urea Nitrogen 36 mg/dL (6-24); C Reactive Protein 132.91 mg/L (<8.01); CO2 Carbon Dioxide 23 mmol/L (22-32); Calcium 7.5 mg/dL (8.6-10.3); Chloride 101 mmol/L (101-111); Creatinine, Serum 1.77 mg/dL (0.51-0.95); Globulin 3.8 g/dL (2-4); Glucose 93 mg/dL (70-100); Potassium 6.1 mmol/L (3.5-5.0); Sodium 129 mmol/L (135-145); Total Bilirubin 0.2 mg/dL (0.2-1.0); Total Protein 5.6 g/dL (6.4-8.9); eGFR CKD-EPI 31.3 (>60)
[2024-01-20] MEDS: Furosemide 40 mg/4 ml IV VIAL IV SLOW PU ONE (21:07)
[2024-01-20] MEDS: Dextrose 50% Syringe 50 ml 25 GM/50 ML SYRINGE IV PUSH ONE (21:12)
[2024-01-20] MEDS: CALCIUM GLUCONATE 1GM/50ML NS 1 GM/50 ML BAG IV ONE (21:18)
[2024-01-20 21:51] LABS: High Sensitivity Troponin 1 Hr 7 pg/mL (<15)
[2024-01-20] MEDS: Iodixanol (CONTRAST) 320 MG/ML 100 ML SDV IV ONE (23:15)
[2024-01-21] MEDS: Enoxaparin 40 MG/0.4 ML SYR SUBCUT SCH (00:01)
[2024-01-21] MEDS: Lactulose 30 ml UDC PO ONE (00:54)
[2024-01-21] MEDS: Glycerin ADULT 2.4 gm SUPP PR ONE (00:55)
[2024-01-21] MEDS ORDERED: NON FORMULARY MED (Acetaminophen 500 mg Tablet) PO PRN (01:12)
[2024-01-21 01:24] LABS: ABS Basophils 0.2 10^3/uL (0.0-0.1); ABS Eosinophils 0.1 10^3/uL (0.0-0.5); ABS Lymphocytes 1.2 10^3/uL (1.0-4.8); ABS Monocytes 0.7 10^3/uL (0.0-0.9); ABS Neutrophils 19.6 10^3/uL (1.5-7.6); ABS Nucleated RBC 0.01 10^3/ul; Eosinophil % 0.4 %; Hematocrit 26.9 % (35-45); Hemoglobin 8.6 g/dL (11.5-14.3); Lymphocyte % 5.5 %; Mean Corpuscular Hemoglobin 27.1 pg (27-33); Mean Corpuscular Volume 84.6 fL (80-97); Mean Platelet Volume 6.8 fL (7.5-11.2); Platelet Count 918 10^3/uL (150-450); Red Blood Count 3.18 10^6/uL (3.63-4.92); Red Cell Distribution Width 17.7 % (12-17); White Blood Count 21.8 10^3/uL (3.8-11.8)
[2024-01-21 02:06] LABS: Anion Gap 8 mmol/L (2-16); Blood Urea Nitrogen 33 mg/dL (6-24); CO2 Carbon Dioxide 22 mmol/L (22-32); Calcium 7.4 mg/dL (8.6-10.3); Chloride 99 mmol/L (101-111); Glucose 68 mg/dL (70-100); Sodium 129 mmol/L (135-145); eGFR CKD-EPI 32.9 (>60)
[2024-01-21] MEDS ORDERED: Sulfur Hexaflouride MICROSPHR 25 MG VIAL IV PRN (02:10)
[2024-01-21] MEDS ORDERED: Piperacillin/Tazobac 3.375 BAG 3.375 GM/100 ML BAG IV ONE (02:14)
[2024-01-21] MEDS: ZOSYN 3.375 GM Q8H per EXTENDED INFUSION IV SCH (02:28)
[2024-01-21 02:36] LABS: % Iron Saturation 19 % (15-55); .Transferrin < 75 mg/dL (203-362); Creatine Kinase 19 U/L (10-223); Iron < 20 ug/dL (50-212); Magnesium 2.5 mg/dL (1.9-2.7); Total Iron Binding Capacity 105 mcg/dL (250-450); Unsaturated Iron Binding 85 ug/dL; Uric Acid 5.7 mg/dL (2.3-6.6)
[2024-01-21 02:41] LABS: Osmolality Serum 286 mOsm/kg (275-295)
[2024-01-21 02:46] LABS: TSH Ultra Thyroid Stim Horm 3.33 mcIU/mL (0.34-5.60)
[2024-01-21 02:52] LABS: Ferritin 197.6 ng/mL (11-307)
[2024-01-21] MEDS ORDERED: Zosyn per Pharmacy NOTE FOLLOW UP SCH (03:00)
[2024-01-21 03:10] LABS: Urine Appearance Turbid; Urine Bilirubin Negative (Negative); Urine Blood 1+ (Negative); Urine Color Light-Yellow; Urine Glucose Negative (Negative); Urine Ketones Negative (Negative); Urine Nitrite Negative (Negative); Urine Protein 1+ (>=30 mg/dL) (Negative); Urine Specific Gravity 1.013 (1.002-1.030); Urine Urobilinogen Negative (Negative); Urine pH 6.5 (5.0-8.0)
[2024-01-21 03:16] LABS: Potassium, Whole Blood 4.2 mmol/L (3.4-4.5)
[2024-01-21 03:19] LABS: LDH 292 U/L (140-271)
[2024-01-21 03:40] LABS: Hypochromasia 1+
[2024-01-21 03:42] LABS: Anisocytosis 2+; Polychromasia 1+
[2024-01-21 04:07] LABS: Urine Bacteria Absent /HPF (Absent); Urine Red Blood Cell 1+(3-5/hpf) /HPF (0-Trace); Urine White Blood Cell 3+(>20/hpf) /HPF (0-Trace)
[2024-01-21] MEDS: Dextrose 50% Syringe 50 ml 25 GM/50 ML SYRINGE IV PUSH ONE (04:32)
[2024-01-21 05:14] LABS: INR 1.34 (0.85-1.14)
[2024-01-21 05:33] LABS: ABS Basophils 0.1 10^3/uL (0.0-0.1); ABS Eosinophils 0.1 10^3/uL (0.0-0.5); ABS Lymphocytes 1.4 10^3/uL (1.0-4.8); ABS Monocytes 0.6 10^3/uL (0.0-0.9); ABS Neutrophils 18.7 10^3/uL (1.5-7.6); Eosinophil % 0.3 %; Hematocrit 24.2 % (35-45); Hemoglobin 7.9 g/dL (11.5-14.3); Lymphocyte % 6.6 %; Mean Corpuscular Hemoglobin 27.7 pg (27-33); Mean Corpuscular Hgb Conc 32.7 g/dL (31-36); Mean Corpuscular Volume 84.8 fL (80-97); Platelet Count 861 10^3/uL (150-450); Red Blood Count 2.85 10^6/uL (3.63-4.92); Red Cell Distribution Width 17.9 % (12-17); White Blood Count 20.9 10^3/uL (3.8-11.8)
[2024-01-21 05:56] LABS: ALT 19 U/L (7-52); Albumin < 1.7 g/dL (3.2-5.2); Albumin/Globulin Ratio 0.5 (1-3); Alkaline Phosphatase 178 U/L (35-149); Anion Gap 3 mmol/L (2-16); Blood Urea Nitrogen 36 mg/dL (6-24); CO2 Carbon Dioxide 23 mmol/L (22-32); Calcium 7.4 mg/dL (8.6-10.3); Chloride 103 mmol/L (101-111); Creatinine, Serum 1.75 mg/dL (0.51-0.95); Globulin 3.3 g/dL (2-4); Glucose 80 mg/dL (70-100); Magnesium 2.3 mg/dL (1.9-2.7); Sodium 129 mmol/L (135-145); Total Bilirubin 0.3 mg/dL (0.2-1.0); eGFR CKD-EPI 31.7 (>60)
[2024-01-21 06:12] LABS: Urine Osmo 333 mOsm/kg (150-1150)
[2024-01-21] MEDS: Tiotropium Brom/Olodaterol MDI (ACUTE) INH SCH (10:52)
[2024-01-21] MEDS: NS 0.9% 500 ml BAG 500 ML IV ONE (10:57)
[2024-01-21 10:58] LABS: Potassium Redraw 4.5 mmol/L (3.5-5.0)
[2024-01-21] MEDS: Lactated Ringers 1000 ml BAG 1,000 ML IV SCH (11:06)
[2024-01-21] MEDS: Albuterol 2.5mg/3 ml (0.083%) NEB.SOLN INH PRN (12:34)
[2024-01-21] MEDS: Acetylcysteine INH SOL (RT) 200 MG/ML 4 ML VIAL INH SCH (12:34)
[2024-01-21] MEDS: Sodium Chloride(INHALANT) 7% 4 ML NEB.SOLN INH SCH (12:51)
[2024-01-22] MEDS: HYDROcodone/Acetamin 10/325 TAB (NF) PO PRN (01:32)
[2024-01-22 12:32] LABS: Hematocrit 24.1 % (35-45); Hemoglobin 7.8 g/dL (11.5-14.3); Mean Corpuscular Hemoglobin 27.6 pg (27-33); Mean Corpuscular Hgb Conc 32.5 g/dL (31-36); Mean Corpuscular Volume 84.7 fL (80-97); Mean Platelet Volume 6.8 fL (7.5-11.2); Platelet Count 828 10^3/uL (150-450); Red Blood Count 2.84 10^6/uL (3.63-4.92); Red Cell Distribution Width 17.8 % (12-17); White Blood Count 29.8 10^3/uL (3.8-11.8)
[2024-01-22 12:49] LABS: Calcium 7.6 mg/dL (8.6-10.3); Creatinine, Serum 1.81 mg/dL (0.51-0.95); Magnesium 2.2 mg/dL (1.9-2.7); Potassium 3.8 mmol/L (3.5-5.0); eGFR CKD-EPI 30.5 (>60)
[2024-01-22 13:03] LABS: ABS Basophils 0.1 10^3/uL (0.0-0.1); ABS Lymphocytes 1.1 10^3/uL (1.0-4.8); ABS Monocytes 0.7 10^3/uL (0.0-0.9); ABS Neutrophils 27.9 10^3/uL (1.5-7.6); Eosinophil % 0.2 %; Lymphocyte % 3.7 %
[2024-01-22] MEDS: Azithromycin 500 mg/250 ml NS 500 MG/250 ML BAG IVPB SCH (14:03)
[2024-01-22 15:55] LABS: C Reactive Protein 144.01 mg/L (<8.01)
[2024-01-22] MEDS: NS 0.9% 1000 ml BAG 1,000 ML IV SCH (16:10)
[2024-01-22] MEDS: Lactated Ringers 1000 ml BAG 1,000 ML IV SCH (16:12)
[2024-01-22] MEDS: Polyethylene Glycol 3350 17 GM PACKET PO PRN (16:35)
[2024-01-23 08:51] LABS: Hematocrit 23.6 % (35-45); Hemoglobin 7.8 g/dL (11.5-14.3); Mean Corpuscular Hemoglobin 28.1 pg (27-33); Mean Corpuscular Hgb Conc 33.3 g/dL (31-36); Mean Corpuscular Volume 84.5 fL (80-97); Platelet Count 811 10^3/uL (150-450); Red Blood Count 2.79 10^6/uL (3.63-4.92); Red Cell Distribution Width 17.9 % (12-17); White Blood Count 27.7 10^3/uL (3.8-11.8)
[2024-01-23 08:58] LABS: ABS Eosinophils 0.1 10^3/uL (0.0-0.5); ABS Lymphocytes 1.1 10^3/uL (1.0-4.8); ABS Monocytes 0.8 10^3/uL (0.0-0.9); ABS Neutrophils 25.7 10^3/uL (1.5-7.6); ABS Nucleated RBC 0.01 10^3/ul; Eosinophil % 0.2 %; Lymphocyte % 4.1 %
[2024-01-23 09:11] LABS: Calcium 7.2 mg/dL (8.6-10.3); Creatinine, Serum 1.71 mg/dL (0.51-0.95); Potassium 3.8 mmol/L (3.5-5.0); eGFR CKD-EPI 32.6 (>60)
[2024-01-23] MEDS: NS 0.9% 1000 ml BAG 1,000 ML IV ONE (09:53)
[2024-01-23] MEDS ORDERED: Senna TAB 8.6 mg TAB PO PRN (15:02)
[2024-01-24] MEDS: Magnesium Hydroxide LIQ 30 ML UDC PO SCH (10:03)
[2024-01-24 13:08] LABS: Hematocrit 23.7 % (35-45); Hemoglobin 7.9 g/dL (11.5-14.3); Mean Corpuscular Hemoglobin 28.3 pg (27-33); Mean Corpuscular Hgb Conc 33.3 g/dL (31-36); Mean Corpuscular Volume 85.1 fL (80-97); Platelet Count 753 10^3/uL (150-450); Red Blood Count 2.79 10^6/uL (3.63-4.92); Red Cell Distribution Width 18.2 % (12-17); White Blood Count 23.2 10^3/uL (3.8-11.8)
[2024-01-24 13:13] LABS: ABS Basophils 0.1 10^3/uL (0.0-0.1); ABS Eosinophils 0.2 10^3/uL (0.0-0.5); ABS Lymphocytes 1.1 10^3/uL (1.0-4.8); ABS Monocytes 0.8 10^3/uL (0.0-0.9); ABS Neutrophils 21.1 10^3/uL (1.5-7.6); Eosinophil % 0.7 %; Lymphocyte % 4.8 %
[2024-01-24 13:43] LABS: Calcium 7.2 mg/dL (8.6-10.3); Creatinine, Serum 1.7 mg/dL (0.51-0.95); Potassium 3.8 mmol/L (3.5-5.0); eGFR CKD-EPI 32.9 (>60)
[2024-01-24] MEDS: NS 0.9% 1000 ml BAG 1,000 ML IV SCH (16:22)
[2024-01-24] MEDS: Polyethylene Glycol 3350 17 GM PACKET PO SCH (21:58)
[2024-01-25 07:30] LABS: Hematocrit 26.9 % (35-45); Hemoglobin 8.7 g/dL (11.5-14.3); Mean Corpuscular Hemoglobin 27.6 pg (27-33); Mean Corpuscular Hgb Conc 32.5 g/dL (31-36); Mean Corpuscular Volume 84.8 fL (80-97); Platelet Count 836 10^3/uL (150-450); Red Blood Count 3.17 10^6/uL (3.63-4.92); Red Cell Distribution Width 18.3 % (12-17); White Blood Count 24.6 10^3/uL (3.8-11.8)
[2024-01-25 07:40] LABS: Calcium 7.1 mg/dL (8.6-10.3); Creatinine, Serum 1.64 mg/dL (0.51-0.95); Potassium 3.7 mmol/L (3.5-5.0); eGFR CKD-EPI 34.3 (>60)
[2024-01-25 08:57] LABS: ABS Lymphocytes 1.1 10^3/uL (1.0-4.8); ABS Neutrophils 22.6 10^3/uL (1.5-7.6)
[2024-01-25 08:58] LABS: ABS Basophils 0.1 10^3/uL (0.0-0.1); ABS Eosinophils 0.2 10^3/uL (0.0-0.5); ABS Monocytes 0.6 10^3/uL (0.0-0.9); ABS Nucleated RBC 0.01 10^3/ul; Eosinophil % 0.6 %; Lymphocyte % 4.5 %
[2024-01-25] MEDS: Furosemide 20 mg/2 ml IV VIAL IV SLOW PU ONE (17:19)
[2024-01-26] MEDS: Furosemide 40 mg/4 ml IV VIAL IV SLOW PU ONE ×2 (06:39→16:19)
[2024-01-26 06:46] LABS: Hematocrit 24.9 % (35-45); Hemoglobin 8.2 g/dL (11.5-14.3); Mean Corpuscular Hemoglobin 27.5 pg (27-33); Mean Corpuscular Hgb Conc 32.9 g/dL (31-36); Mean Corpuscular Volume 83.6 fL (80-97); Mean Platelet Volume 6.9 fL (7.5-11.2); Platelet Count 713 10^3/uL (150-450); Red Blood Count 2.98 10^6/uL (3.63-4.92); Red Cell Distribution Width 18.6 % (12-17); White Blood Count 19.5 10^3/uL (3.8-11.8)
[2024-01-26 07:34] LABS: Creatinine, Serum 1.67 mg/dL (0.51-0.95); Potassium 3.7 mmol/L (3.5-5.0); eGFR CKD-EPI 33.6 (>60)
[2024-01-26 07:37] LABS: PCO2 Arterial 28 mmHg (35-45); PO2 Arterial 77 mmHg (80-100)
[2024-01-26] MEDS: KCL 10 MEQ/50 ML IVPREMIX 10 MEQ/50 ML BAG IV SCH (08:40)
[2024-01-26] MEDS: KCL 10 MEQ/50 ML IVPREMIX 10 MEQ/50 ML BAG IV ONE (08:42)
[2024-01-26] MEDS ORDERED: KCL 10 MEQ/50 ML IVPREMIX 10 MEQ/50 ML BAG IV SCH (09:00)
[2024-01-26 09:01] LABS: Magnesium 2.2 mg/dL (1.9-2.7)
[2024-01-26] MEDS: Albumin Human 25% 25 GM/100 ML BTL IV ONE (16:02)
[2024-01-26] MEDS: ZOSYN 3.375 GM Q8H per EXTENDED INFUSION IV SCH (22:08)
[2024-01-27 04:56] LABS: Hematocrit 23.1 % (35-45); Hemoglobin 7.6 g/dL (11.5-14.3); Mean Corpuscular Hemoglobin 27.3 pg (27-33); Mean Corpuscular Hgb Conc 33.1 g/dL (31-36); Mean Corpuscular Volume 82.3 fL (80-97); Mean Platelet Volume 7.8 fL (7.5-11.2); Platelet Count 716 10^3/uL (150-450); Red Cell Distribution Width 18.7 % (12-17); White Blood Count 24.5 10^3/uL (3.8-11.8)
[2024-01-27 05:37] LABS: ABS Basophils 0.1 10^3/uL (0.0-0.1); ABS Lymphocytes 0.8 10^3/uL (1.0-4.8); ABS Monocytes 0.8 10^3/uL (0.0-0.9); ABS Neutrophils 22.8 10^3/uL (1.5-7.6); Anisocytosis 2+; Burr Cells 1+; Eosinophil % 0.1 %; Hypochromasia 1+; Lymphocyte % 3.2 %
[2024-01-27 06:21] LABS: Anion Gap 11 mmol/L (2-16); Blood Urea Nitrogen 20 mg/dL (6-24); CO2 Carbon Dioxide 21 mmol/L (22-32); Calcium 7.2 mg/dL (8.6-10.3); Chloride 104 mmol/L (101-111); Glucose 105 mg/dL (70-100); Sodium 136 mmol/L (135-145); eGFR CKD-EPI 32.9 (>60)
[2024-01-27 07:27] LABS: Magnesium 1.9 mg/dL (1.9-2.7); Potassium Redraw 2.9 mmol/L (3.5-5.0)
[2024-01-27 15:43] LABS: Hematocrit 23.4 % (35-45); Hemoglobin 7.8 g/dL (11.5-14.3)
[2024-01-27] MEDS: KCL 20 MEQ/100 ML IVPREMIX 20 MEQ/100 ML BAG IV SCH (17:30)
[2024-01-28] MEDS: Hemorrhoidal OINT 1 TUBE PR PRN (01:07)
[2024-01-28 05:19] LABS: Hematocrit 27.1 % (35-45); Hemoglobin 8.9 g/dL (11.5-14.3); Mean Corpuscular Hemoglobin 27.1 pg (27-33); Mean Corpuscular Hgb Conc 32.7 g/dL (31-36); Mean Corpuscular Volume 82.8 fL (80-97); Mean Platelet Volume 7.2 fL (7.5-11.2); Platelet Count 581 10^3/uL (150-450); Red Blood Count 3.27 10^6/uL (3.63-4.92); Red Cell Distribution Width 18.5 % (12-17); White Blood Count 22.7 10^3/uL (3.8-11.8)
[2024-01-28 05:25] LABS: ABS Basophils 0.2 10^3/uL (0.0-0.1); ABS Eosinophils 0.1 10^3/uL (0.0-0.5); ABS Lymphocytes 0.9 10^3/uL (1.0-4.8); ABS Monocytes 1.1 10^3/uL (0.0-0.9); ABS Neutrophils 20.4 10^3/uL (1.5-7.6); ABS Nucleated RBC 0.01 10^3/ul; Eosinophil % 0.4 %
[2024-01-28 05:57] LABS: Calcium 7.1 mg/dL (8.6-10.3); Creatinine, Serum 1.59 mg/dL (0.51-0.95); Magnesium 1.8 mg/dL (1.9-2.7); Potassium 2.6 mmol/L (3.5-5.0); eGFR CKD-EPI 35.6 (>60)
[2024-01-28] MEDS: Potassium Chlor 20 meq TAB.ER PO ONE ×4 (06:15→15:12)
[2024-01-28] MEDS: KCL 20 MEQ/100 ML IVPREMIX 20 MEQ/100 ML BAG IV SCH ×2 (06:15→10:40)
[2024-01-28] MEDS: Albuterol/Ipratropium NEB.SOL (2.5/0.5 MG) 3 ML NEB.SOLN INH PRN (08:40)
[2024-01-28] MEDS ORDERED: KCL 20 MEQ/100 ML IVPREMIX 20 MEQ/100 ML BAG IV SCH (09:00)
[2024-01-28] MEDS: Magnesium Sulf 4 GM/100 ML IV 4,000 MG/100 ML BAG IVPB ONE (10:11)
[2024-01-28] MEDS: Potassium EFFERVES 25 meq TAB PO ONE (10:12)
[2024-01-28] MEDS: methylPREDNISolone SOD SUCC 40 mg/ml 1 ml VIAL IV SCH (10:12)
[2024-01-28] MEDS: Furosemide 40 mg/4 ml IV VIAL IV ONE ×2 (10:40→16:24)
[2024-01-28] MEDS: Azithromycin 500 mg/250 ml NS 500 MG/250 ML BAG IVPB SCH (11:09)
[2024-01-28 15:50] LABS: Calcium 7.2 mg/dL (8.6-10.3); Creatinine, Serum 1.54 mg/dL (0.51-0.95); Potassium 3.9 mmol/L (3.5-5.0)
[2024-01-28] MEDS: Albumin Human 25% 25 GM/100 ML BTL IV ONE (16:24)
[2024-01-28] MEDS ORDERED: Lorazepam PYXIS KEY PRN (17:04)
[2024-01-28 18:03] LABS: C Reactive Protein 219.63 mg/L (<8.01)
[2024-01-28] MEDS: LORazepam 2 mg VIAL 1 ml IV PUSH ONE (18:39)
[2024-01-28 19:14] LABS: Erythrocyte Sed Rate 94 mm/Hr (0-29)
[2024-01-29 04:27] LABS: ABS Basophils 0.1 10^3/uL (0.0-0.1); ABS Lymphocytes 0.9 10^3/uL (1.0-4.8); ABS Monocytes 0.4 10^3/uL (0.0-0.9); ABS Neutrophils 17.7 10^3/uL (1.5-7.6); ABS Nucleated RBC 0.01 10^3/ul; Hematocrit 26.7 % (35-45); Lymphocyte % 4.6 %; Mean Corpuscular Hemoglobin 27.7 pg (27-33); Mean Corpuscular Hgb Conc 33.6 g/dL (31-36); Mean Corpuscular Volume 82.6 fL (80-97); Mean Platelet Volume 7.8 fL (7.5-11.2); Platelet Count 669 10^3/uL (150-450); Red Blood Count 3.23 10^6/uL (3.63-4.92); Red Cell Distribution Width 18.7 % (12-17)
[2024-01-29 04:55] LABS: Anion Gap 11 mmol/L (2-16); Blood Urea Nitrogen 17 mg/dL (6-24); CO2 Carbon Dioxide 20 mmol/L (22-32); Calcium 7.5 mg/dL (8.6-10.3); Chloride 108 mmol/L (101-111); Glucose 238 mg/dL (70-100); Magnesium 2.9 mg/dL (1.9-2.7); Sodium 139 mmol/L (135-145); eGFR CKD-EPI 35.3 (>60)
[2024-01-29 05:16] LABS: Potassium, Whole Blood 3.5 mmol/L (3.4-4.5)
[2024-01-29] MEDS: Potassium Chlor 20 meq TAB.ER PO ONE (05:57)
[2024-01-29] MEDS: Iodixanol (CONTRAST) 320 MG/ML 100 ML SDV IV ONE ×2 (07:53→07:54)
[2024-01-29] MEDS ORDERED: Dextrose 50% Syringe 50 ml 25 GM/50 ML SYRINGE IV PUSH PRN (08:18)
[2024-01-29] MEDS: DOXYcycline 100 MG in NS 0.9% 250 ml 250 ML IVPB SCH (11:20)
[2024-01-29] MEDS: Iron Sucrose 200 MG in NS 0.9% 100 ml BAG 100 ML IVPB ONE (11:20)
[2024-01-29] MEDS: Heparin 5000 UNITS/ML 1 mL VIAL SUBCUT SCH (11:23)
[2024-01-29] MEDS: Furosemide 40 mg/4 ml IV VIAL IV ONE (11:23)
[2024-01-29] MEDS ORDERED: Sulfur Hexaflouride MICROSPHR 25 MG VIAL IV PRN (12:46)
[2024-01-30 04:32] LABS: Hematocrit 28.9 % (35-45); Hemoglobin 9.3 g/dL (11.5-14.3); Mean Corpuscular Hemoglobin 26.5 pg (27-33); Mean Corpuscular Hgb Conc 32.1 g/dL (31-36); Mean Corpuscular Volume 82.4 fL (80-97); Mean Platelet Volume 7.9 fL (7.5-11.2); Platelet Count 801 10^3/uL (150-450); Red Blood Count 3.51 10^6/uL (3.63-4.92); Red Cell Distribution Width 19.5 % (12-17); White Blood Count 23.7 10^3/uL (3.8-11.8)
[2024-01-30 04:54] LABS: Calcium 7.6 mg/dL (8.6-10.3); Creatinine, Serum 1.67 mg/dL (0.51-0.95); Magnesium 2.5 mg/dL (1.9-2.7); Potassium 3.5 mmol/L (3.5-5.0); eGFR CKD-EPI 33.6 (>60)
[2024-01-30 05:23] LABS: ABS Lymphocytes 1.2 10^3/uL (1.0-4.8); ABS Monocytes 0.4 10^3/uL (0.0-0.9); ABS Nucleated RBC 0.01 10^3/ul; Lymphocyte % 5.2 %
[2024-01-30] MEDS: Furosemide 40 mg/4 ml IV VIAL IV ONE (10:48)
[2024-01-31 04:28] LABS: Hematocrit 28.3 % (35-45); Hemoglobin 9.4 g/dL (11.5-14.3); Mean Corpuscular Hemoglobin 27.2 pg (27-33); Mean Corpuscular Hgb Conc 33.1 g/dL (31-36); Mean Corpuscular Volume 82.1 fL (80-97); Mean Platelet Volume 7.6 fL (7.5-11.2); Platelet Count 826 10^3/uL (150-450); Red Blood Count 3.45 10^6/uL (3.63-4.92); Red Cell Distribution Width 19.1 % (12-17); White Blood Count 23.2 10^3/uL (3.8-11.8)
[2024-01-31 05:04] LABS: Calcium 7.5 mg/dL (8.6-10.3); Creatinine, Serum 1.78 mg/dL (0.51-0.95); Magnesium 2.2 mg/dL (1.9-2.7); eGFR CKD-EPI 31.1 (>60)
[2024-01-31 06:02] LABS: ABS Basophils 0.1 10^3/uL (0.0-0.1); ABS Lymphocytes 1.3 10^3/uL (1.0-4.8); ABS Monocytes 0.6 10^3/uL (0.0-0.9); ABS Neutrophils 21.2 10^3/uL (1.5-7.6); ABS Nucleated RBC 0.03 10^3/ul; Lymphocyte % 5.8 %; Nucleated Red Blood Cells % 0.1 %/100WBC (0.0-0.8)
[2024-01-31] MEDS: KCL 20 MEQ/100 ML IVPREMIX 20 MEQ/100 ML BAG IV SCH ×2 (06:47→16:20)
[2024-01-31] MEDS: Hydrocortisone 0.5% OINT 1 TUBE TOPICAL SCH (09:20)
[2024-01-31] MEDS: HYDROmorphone 0.5 MG/0.5 ML SYRINGE IV SLOW PU PRN (11:02)
[2024-01-31 13:49] LABS: Urine Appearance Turbid; Urine Bilirubin Negative (Negative); Urine Blood Trace (Negative); Urine Color Light-Yellow; Urine Glucose Negative (Negative); Urine Ketones Negative (Negative); Urine Nitrite Negative (Negative); Urine Protein 2+ (>=100 mg/dL) (Negative); Urine Specific Gravity 1.016 (1.002-1.030); Urine Urobilinogen Negative (Negative); Urine pH 5.5 (5.0-8.0)
[2024-01-31 13:54] LABS: Urine Amorphous Crystals Present /HPF (Absent); Urine Bacteria Absent /HPF (Absent); Urine Red Blood Cell 1+(3-5/hpf) /HPF (0-Trace); Urine Squamous Epithelial Cell Present /HPF (Absent); Urine White Blood Cell 1+(6-10/hpf) /HPF (0-Trace)
[2024-01-31] MEDS: Potassium Chloride LIQUID 20 MEQ/15 ML LIQUID PO ONE (15:58)
[2024-01-31 16:42] LABS: Hematocrit 27.8 % (35-45); Hemoglobin 9.1 g/dL (11.5-14.3); Mean Corpuscular Hemoglobin 26.9 pg (27-33); Mean Corpuscular Hgb Conc 32.8 g/dL (31-36); Mean Corpuscular Volume 82.2 fL (80-97); Mean Platelet Volume 7.6 fL (7.5-11.2); Platelet Count 788 10^3/uL (150-450); Red Blood Count 3.37 10^6/uL (3.63-4.92); Red Cell Distribution Width 19.5 % (12-17); White Blood Count 23.9 10^3/uL (3.8-11.8)
[2024-01-31 17:15] LABS: Albumin 2.1 g/dL (3.2-5.2); Albumin/Globulin Ratio 0.7 (1-3); Calcium 7.3 mg/dL (8.6-10.3); Creatinine, Serum 1.78 mg/dL (0.51-0.95); Potassium 3.2 mmol/L (3.5-5.0); Total Bilirubin 0.4 mg/dL (0.2-1.0); Total Protein 5.1 g/dL (6.4-8.9); eGFR CKD-EPI 31.1 (>60)
[2024-01-31 17:21] LABS: ABS Basophils 0.1 10^3/uL (0.0-0.1); ABS Lymphocytes 1.3 10^3/uL (1.0-4.8); ABS Monocytes 0.6 10^3/uL (0.0-0.9); ABS Neutrophils 21.9 10^3/uL (1.5-7.6); ABS Nucleated RBC 0.01 10^3/ul; Lymphocyte % 5.5 %
[2024-01-31] MEDS: Lactated Ringers 1000 ml BAG 500 ML IV SCH (18:28)
[2024-02-01 04:35] LABS: Hematocrit 27.7 % (35-45); Mean Corpuscular Hemoglobin 26.8 pg (27-33); Mean Corpuscular Hgb Conc 32.6 g/dL (31-36); Mean Corpuscular Volume 82.2 fL (80-97); Mean Platelet Volume 7.5 fL (7.5-11.2); Platelet Count 810 10^3/uL (150-450); Red Blood Count 3.36 10^6/uL (3.63-4.92); White Blood Count 21.6 10^3/uL (3.8-11.8)
[2024-02-01 04:54] LABS: ABS Basophils 0.1 10^3/uL (0.0-0.1); ABS Lymphocytes 0.8 10^3/uL (1.0-4.8); ABS Monocytes 0.4 10^3/uL (0.0-0.9); ABS Neutrophils 20.3 10^3/uL (1.5-7.6); ABS Nucleated RBC 0.01 10^3/ul; Lymphocyte % 3.8 %; Nucleated Red Blood Cells % 0.1 %/100WBC (0.0-0.8)
[2024-02-01 05:04] LABS: Calcium 7.5 mg/dL (8.6-10.3); Creatinine, Serum 1.94 mg/dL (0.51-0.95); Potassium 3.7 mmol/L (3.5-5.0); eGFR CKD-EPI 28.1 (>60)
[2024-02-01] MEDS: Lactated Ringers 1000 ml BAG 500 ML IV ONE (05:26)
[2024-02-01] MEDS ORDERED: Vancomycin per Pharmacy 1 EA NOTE FOLLOW UP SCH (11:00)
[2024-02-01] MEDS ORDERED: Lorazepam PYXIS KEY PRN (12:12)
[2024-02-01] MEDS: LORazepam 2 mg VIAL 1 ml IV PUSH ONE (12:26)
[2024-02-01] MEDS: Vancomycin 1,250 MG in NS 0.9% 250 ml 250 ML IVPB ONE (12:30)
[2024-02-02] MEDS: Vancomycin Random Level NOTE FOLLOW UP ONE (08:30)
[2024-02-02] MEDS: methylPREDNISolone SOD SUCC 40 mg/ml 1 ml VIAL IV SCH (09:37)
[2024-02-02 12:40] LABS: Calcium 7.4 mg/dL (8.6-10.3); Creatinine, Serum 1.83 mg/dL (0.51-0.95); Potassium 3.1 mmol/L (3.5-5.0); Vancomycin Random 12.8 mcg/mL; eGFR CKD-EPI 30.1 (>60)
[2024-02-02 12:50] LABS: Hematocrit 26.7 % (35-45); Hemoglobin 8.7 g/dL (11.5-14.3); Mean Corpuscular Hemoglobin 27.3 pg (27-33); Mean Corpuscular Hgb Conc 32.6 g/dL (31-36); Mean Corpuscular Volume 83.5 fL (80-97); Mean Platelet Volume 7.9 fL (7.5-11.2); Platelet Count 704 10^3/uL (150-450); Red Blood Count 3.19 10^6/uL (3.63-4.92); Red Cell Distribution Width 19.6 % (12-17); White Blood Count 28.1 10^3/uL (3.8-11.8)
[2024-02-02 13:02] LABS: ABS Lymphocytes 0.7 10^3/uL (1.0-4.8); ABS Monocytes 0.4 10^3/uL (0.0-0.9); ABS Nucleated RBC 0.01 10^3/ul; Eosinophil % 0.1 %; Lymphocyte % 2.5 %
[2024-02-02] MEDS ORDERED: Vancomycin 750 MG in NS 0.9% 250 ML IVPB SCH (14:30)
[2024-02-02] MEDS: Vancomycin 1,250 MG in NS 0.9% 250 ml 250 ML IVPB SCH (15:30)
[2024-02-02] MEDS: Lactated Ringers 1000 ml BAG 500 ML IV ONE (16:16)
[2024-02-02] MEDS: Iodixanol (CONTRAST) 320 MG/ML 100 ML SDV IV SCH (17:23)
[2024-02-02] MEDS: Haloperidol 5 mg/ml SDV IV/IM 5 MG/ML AMP IV SLOW PU PRN (17:55)
[2024-02-02] MEDS: KCL 20 MEQ/100 ML IVPREMIX 20 MEQ/100 ML BAG IV SCH (19:09)
[2024-02-02] MEDS: Pantoprazole VIAL 40 MG VIAL IV SCH (21:55)
[2024-02-03] MEDS: Furosemide 40 mg/4 ml IV VIAL IV SLOW PU ONE (03:28)
[2024-02-03 04:45] LABS: Hematocrit 25.6 % (35-45); Hemoglobin 8.5 g/dL (11.5-14.3); Mean Corpuscular Hemoglobin 27.7 pg (27-33); Mean Corpuscular Hgb Conc 33.1 g/dL (31-36); Mean Corpuscular Volume 83.5 fL (80-97); Mean Platelet Volume 7.7 fL (7.5-11.2); Platelet Count 679 10^3/uL (150-450); Red Blood Count 3.06 10^6/uL (3.63-4.92); Red Cell Distribution Width 19.5 % (12-17); White Blood Count 28.1 10^3/uL (3.8-11.8)
[2024-02-03 05:35] LABS: Calcium 7.4 mg/dL (8.6-10.3); Creatinine, Serum 1.8 mg/dL (0.51-0.95); Magnesium 1.9 mg/dL (1.9-2.7); eGFR CKD-EPI 30.7 (>60)
[2024-02-03 06:37] LABS: ABS Basophils 0.1 10^3/uL (0.0-0.1); ABS Lymphocytes 1.3 10^3/uL (1.0-4.8); ABS Monocytes 0.7 10^3/uL (0.0-0.9); ABS Neutrophils 25.9 10^3/uL (1.5-7.6); ABS Nucleated RBC 0.02 10^3/ul; Eosinophil % 0.2 %; Lymphocyte % 4.7 %; Nucleated Red Blood Cells % 0.1 %/100WBC (0.0-0.8)
[2024-02-03] MEDS: Albumin Human 5% 12.5 GM/250 ML BTL IV ONE (16:56)
[2024-02-03] MEDS: Furosemide 40 mg/4 ml IV VIAL IV ONE (16:58)
[2024-02-03 19:12] LABS: Magnesium 1.9 mg/dL (1.9-2.7); Potassium 3.7 mmol/L (3.5-5.0)
[2024-02-03] MEDS: Magnesium Sulfate 2 gm BAG 2 GM/50 ML BAG IVPB ONE (19:57)
[2024-02-04 04:46] LABS: Hematocrit 24.5 % (35-45); Hemoglobin 7.8 g/dL (11.5-14.3); Mean Corpuscular Hemoglobin 26.4 pg (27-33); Mean Corpuscular Hgb Conc 31.9 g/dL (31-36); Mean Corpuscular Volume 82.8 fL (80-97); Mean Platelet Volume 7.6 fL (7.5-11.2); Platelet Count 618 10^3/uL (150-450); Red Blood Count 2.95 10^6/uL (3.63-4.92); Red Cell Distribution Width 19.6 % (12-17); White Blood Count 24.9 10^3/uL (3.8-11.8)
[2024-02-04 05:12] LABS: ABS Basophils 0.1 10^3/uL (0.0-0.1); ABS Eosinophils 0.1 10^3/uL (0.0-0.5); ABS Lymphocytes 1.3 10^3/uL (1.0-4.8); ABS Monocytes 0.8 10^3/uL (0.0-0.9); ABS Neutrophils 22.7 10^3/uL (1.5-7.6); ABS Nucleated RBC 0.07 10^3/ul; Anisocytosis 1+; Basophilic Stippling 1+; Eosinophil % 0.2 %; Lymphocyte % 5.2 %; Nucleated Red Blood Cells % 0.3 %/100WBC (0.0-0.8); Polychromasia 1+; Target Cells 1+
[2024-02-04 05:25] LABS: Calcium 7.4 mg/dL (8.6-10.3); Creatinine, Serum 1.8 mg/dL (0.51-0.95); Magnesium 2.4 mg/dL (1.9-2.7); Potassium 3.4 mmol/L (3.5-5.0); eGFR CKD-EPI 30.7 (>60)
[2024-02-04] MEDS: KCL 20 MEQ/100 ML IVPREMIX 20 MEQ/100 ML BAG IV SCH (08:07)
[2024-02-04 10:17] LABS: Platelet Count 587 10^3/ul (150-450)
[2024-02-04 11:03] LABS: Activated Partial Thrombo Time 38.3 seconds (26.0-38.0); INR 1.51 (0.85-1.14)
[2024-02-04 11:06] LABS: Schistocytes ABSENT
[2024-02-04] MEDS: Phytonadione IV (Adult) 10 MG in NS 0.9% 50 ML 50 ML IV ONE (11:48)
[2024-02-04] MEDS ORDERED: Vancomycin Trough Check NOTE FOLLOW UP ONE (14:00)
[2024-02-05 03:20] LABS: Body Fluid Total Nucleated 199 /mcL
[2024-02-05 03:35] LABS: Body Fluid Appearance Clear; Body Fluid Color Yellow; Body Fluid Source Pleural Fluid
[2024-02-05 03:36] LABS: Body Fluid Mono 35 %; Body Fluid Total Cells Counted 200
[2024-02-05 03:37] LABS: Body Fluid Other Cells 60
[2024-02-05 04:25] LABS: Hemoglobin 8.4 g/dL (11.5-14.3); Mean Corpuscular Hemoglobin 26.3 pg (27-33); Mean Corpuscular Hgb Conc 31.2 g/dL (31-36); Mean Corpuscular Volume 84.3 fL (80-97); Mean Platelet Volume 7.7 fL (7.5-11.2); Platelet Count 617 10^3/uL (150-450); Red Blood Count 3.21 10^6/uL (3.63-4.92); Red Cell Distribution Width 19.5 % (12-17); White Blood Count 29.9 10^3/uL (3.8-11.8)
[2024-02-05 04:41] LABS: ABS Basophils 0.2 10^3/uL (0.0-0.1); ABS Lymphocytes 1.5 10^3/uL (1.0-4.8); ABS Monocytes 0.7 10^3/uL (0.0-0.9); ABS Neutrophils 27.4 10^3/uL (1.5-7.6); ABS Nucleated RBC 0.12 10^3/ul; Eosinophil % 0.1 %; Lymphocyte % 5.2 %; Nucleated Red Blood Cells % 0.4 %/100WBC (0.0-0.8)
[2024-02-05 05:00] LABS: Calcium 7.2 mg/dL (8.6-10.3); Creatinine, Serum 1.85 mg/dL (0.51-0.95); Magnesium 2.3 mg/dL (1.9-2.7); Potassium 3.6 mmol/L (3.5-5.0); eGFR CKD-EPI 29.7 (>60)
[2024-02-05] MEDS: Vancomycin Trough Check NOTE FOLLOW UP ONE ×2 (08:28→15:07)
[2024-02-05 08:33] LABS: Platelet Count 581 10^3/ul (150-450)
[2024-02-05 08:56] LABS: Activated Partial Thrombo Time 30.7 seconds (26.0-38.0); INR 1.29 (0.85-1.14)
[2024-02-05 09:32] LABS: Schistocytes ABSENT
[2024-02-05] MEDS: Potassium Chlor 20 meq TAB.ER PO ONE (09:49)
[2024-02-05] MEDS ORDERED: Furosemide 40 mg/4 ml IV VIAL IV SLOW PU SCH (10:00)
[2024-02-05] MEDS: Furosemide 100 mg/10 ml IV VIAL IV ONE (10:20)
[2024-02-05] MEDS: Potassium Chloride LIQUID 20 MEQ/15 ML LIQUID PO ONE (11:22)
[2024-02-05 15:04] LABS: Creatinine, Serum 1.83 mg/dL (0.51-0.95); Potassium 4.4 mmol/L (3.5-5.0); eGFR CKD-EPI 30.1 (>60)
[2024-02-05 15:06] LABS: Vancomycin Trough 38.2 mcg/mL
[2024-02-05] MEDS: Bumetanide IV 10 MG in Premix IV 0 ML IV SCH ×2 (17:00→18:04)
[2024-02-05 22:54] LABS: Potassium 3.9 mmol/L (3.5-5.0)
[2024-02-05 23:06] LABS: Creatinine, Serum 1.94 mg/dL (0.51-0.95); eGFR CKD-EPI 28.1 (>60)
[2024-02-06 04:19] LABS: Hematocrit 21.1 % (35-45); Hemoglobin 6.9 g/dL (11.5-14.3); Mean Corpuscular Hemoglobin 26.9 pg (27-33); Mean Corpuscular Hgb Conc 32.7 g/dL (31-36); Mean Corpuscular Volume 82.3 fL (80-97); Mean Platelet Volume 8.1 fL (7.5-11.2); Platelet Count 439 10^3/uL (150-450); Red Blood Count 2.56 10^6/uL (3.63-4.92); Red Cell Distribution Width 20.3 % (12-17); White Blood Count 22.3 10^3/uL (3.8-11.8)
[2024-02-06 05:01] LABS: Calcium 7.3 mg/dL (8.6-10.3); Creatinine, Serum 1.98 mg/dL (0.51-0.95); Magnesium 2.2 mg/dL (1.9-2.7); Phosphorus 3.9 mg/dL (2.5-5.0); Potassium 3.6 mmol/L (3.5-5.0); Vancomycin Random 40.6 mcg/mL; eGFR CKD-EPI 27.4 (>60)
[2024-02-06 05:26] LABS: ABS Basophils 0.1 10^3/uL (0.0-0.1); ABS Lymphocytes 1.6 10^3/uL (1.0-4.8); ABS Monocytes 0.8 10^3/uL (0.0-0.9); ABS Neutrophils 19.8 10^3/uL (1.5-7.6); ABS Nucleated RBC 0.12 10^3/ul; Anisocytosis 2+; Eosinophil % 0.1 %; Lymphocyte % 7.3 %; Nucleated Red Blood Cells % 0.5 %/100WBC (0.0-0.8); Polychromasia 1+
[2024-02-06 05:54] LABS: Venous Bicarbonate HCO3 18.4 mmol/L (24-28)
[2024-02-06] MEDS: Vancomycin Random Level NOTE FOLLOW UP ONE (08:00)
[2024-02-06 09:20] LABS: Albumin/Globulin Ratio 0.8 (1-3); Direct Bilirubin 0.3 mg/dL (0.03-0.18); Globulin 2.6 g/dL (2-4); Indirect Bilirubin 0.4 mg/dL (0.3-1.0); Total Bilirubin 0.7 mg/dL (0.2-1.0); Total Protein 4.6 g/dL (6.4-8.9)
[2024-02-06 09:35] LABS: Hematocrit 23.3 % (35-45); Hemoglobin 7.3 g/dL (11.5-14.3); Mean Corpuscular Hemoglobin 26.2 pg (27-33); Mean Corpuscular Hgb Conc 31.4 g/dL (31-36); Mean Corpuscular Volume 83.5 fL (80-97); Mean Platelet Volume 7.9 fL (7.5-11.2); Platelet Count 471 10^3/uL (150-450); Red Blood Count 2.79 10^6/uL (3.63-4.92); Red Cell Distribution Width 19.7 % (12-17); White Blood Count 28.3 10^3/uL (3.8-11.8)
[2024-02-06 09:39] LABS: ABS Basophils 0.1 10^3/uL (0.0-0.1); ABS Eosinophils 0.1 10^3/uL (0.0-0.5); ABS Lymphocytes 1.5 10^3/uL (1.0-4.8); ABS Monocytes 0.8 10^3/uL (0.0-0.9); ABS Neutrophils 25.8 10^3/uL (1.5-7.6); ABS Nucleated RBC 0.16 10^3/ul; Eosinophil % 0.2 %; Lymphocyte % 5.4 %; Nucleated Red Blood Cells % 0.6 %/100WBC (0.0-0.8)
[2024-02-06 10:21] LABS: Albumin/Globulin Ratio 0.8 (1-3); Calcium 7.2 mg/dL (8.6-10.3); Creatinine, Serum 1.98 mg/dL (0.51-0.95); Globulin 2.5 g/dL (2-4); Potassium 3.5 mmol/L (3.5-5.0); Total Bilirubin 0.7 mg/dL (0.2-1.0); Total Protein 4.5 g/dL (6.4-8.9); eGFR CKD-EPI 27.4 (>60)
[2024-02-06] MEDS: Zinc Oxide 40% (TOPICAL) TUBE TOPICAL SCH (10:38)
[2024-02-06] MEDS: Acetaminophen IV 1 GM/100ML 1,000 MG/100 ML BAG IV PRN (12:59)
[2024-02-06 15:16] LABS: Calcium 7.1 mg/dL (8.6-10.3); Creatinine, Serum 1.94 mg/dL (0.51-0.95); Potassium 3.3 mmol/L (3.5-5.0); eGFR CKD-EPI 28.1 (>60)
[2024-02-06 15:40] LABS: Lactate Dehydrogenase, BF 217 U/L
[2024-02-06] MEDS: Potassium Chloride LIQUID 20 MEQ/15 ML LIQUID NG TUBE ONE ×2 (16:32→17:55)
[2024-02-06 21:16] LABS: Calcium 7.2 mg/dL (8.6-10.3); Creatinine, Serum 1.99 mg/dL (0.51-0.95); Potassium 3.9 mmol/L (3.5-5.0); eGFR CKD-EPI 27.2 (>60)
[2024-02-06] MEDS: Bumetanide IV 10 MG in Premix IV 0 ML IV SCH (22:29)
[2024-02-07 07:11] LABS: Hemoglobin 7.8 g/dL (11.5-14.3); Mean Corpuscular Hemoglobin 27.3 pg (27-33); Mean Corpuscular Hgb Conc 32.6 g/dL (31-36); Mean Corpuscular Volume 83.7 fL (80-97); Mean Platelet Volume 8.7 fL (7.5-11.2); Platelet Count 412 10^3/uL (150-450); Red Blood Count 2.87 10^6/uL (3.63-4.92); Red Cell Distribution Width 19.9 % (12-17); White Blood Count 29.2 10^3/uL (3.8-11.8)
[2024-02-07 07:17] LABS: Calcium 7.3 mg/dL (8.6-10.3); Creatinine, Serum 2.1 mg/dL (0.51-0.95); Phosphorus 3.9 mg/dL (2.5-5.0); Potassium 3.3 mmol/L (3.5-5.0); eGFR CKD-EPI 25.5 (>60)
[2024-02-07 07:18] LABS: ABS Basophils 0.1 10^3/uL (0.0-0.1); ABS Eosinophils 0.1 10^3/uL (0.0-0.5); ABS Lymphocytes 1.5 10^3/uL (1.0-4.8); ABS Monocytes 0.9 10^3/uL (0.0-0.9); ABS Neutrophils 26.6 10^3/uL (1.5-7.6); ABS Nucleated RBC 0.18 10^3/ul; Eosinophil % 0.4 %; Nucleated Red Blood Cells % 0.6 %/100WBC (0.0-0.8)
[2024-02-07] MEDS ORDERED: Polyethylene Glycol 3350 17 GM PACKET NG TUBE PRN (07:24)
[2024-02-07 07:37] LABS: Vancomycin Trough 33.9 mcg/mL
[2024-02-07 08:56] LABS: Albumin, BF 0.9 g/dL; Fluid Type, Albumin PLEURAL FLUID; Fluid Type, Protein, Total PLEURAL FLUID; Glucose, BF 166 mg/dL; Total Protein, BF 1.7 g/dL
[2024-02-07] MEDS: Potassium Chloride LIQUID 20 MEQ/15 ML LIQUID NG TUBE ONE ×4 (09:17→18:24)
[2024-02-07] MEDS: Bumetanide IV 0.25 MG/ML 4 ml VIAL (1 mg) IV SLOW PU ONE ×2 (09:40→17:58)
[2024-02-07] MEDS: Heparin 5000 UNITS/ML 1 mL VIAL SUBCUT SCH (13:23)
[2024-02-07] MEDS: Alteplase (CATHFLO) 2 MG VIAL IV ONE ×2 (13:56→19:58)
[2024-02-07 14:17] LABS: Creatinine, Serum 2.13 mg/dL (0.51-0.95); Potassium 3.5 mmol/L (3.5-5.0); eGFR CKD-EPI 25.1 (>60)
[2024-02-07] MEDS: Acetaminophen IV 1 GM/100ML 1,000 MG/100 ML BAG IV ONE (17:14)
[2024-02-07 18:03] LABS: Magnesium 1.9 mg/dL (1.9-2.7)
[2024-02-07] MEDS: Magnesium Sulfate 2 gm BAG 2 GM/50 ML BAG IVPB ONE (20:12)
[2024-02-07] MEDS: Acetaminophen IV 1 GM/100ML 1,000 MG/100 ML BAG IV PRN (22:47)
[2024-02-07 22:53] LABS: Calcium 7.1 mg/dL (8.6-10.3); Creatinine, Serum 2.14 mg/dL (0.51-0.95); Magnesium 2.6 mg/dL (1.9-2.7); Potassium 4.2 mmol/L (3.5-5.0); eGFR CKD-EPI 24.9 (>60)
[2024-02-08] MEDS: Levothyroxine 100 MCG/5 ML VIAL IV SCH (05:20)
[2024-02-08 05:21] LABS: Hematocrit 23.3 % (35-45); Hemoglobin 7.6 g/dL (11.5-14.3); Mean Corpuscular Hemoglobin 26.8 pg (27-33); Mean Corpuscular Hgb Conc 32.6 g/dL (31-36); Mean Corpuscular Volume 82.1 fL (80-97); Mean Platelet Volume 8.8 fL (7.5-11.2); Platelet Count 352 10^3/uL (150-450); Red Blood Count 2.84 10^6/uL (3.63-4.92); Red Cell Distribution Width 20.3 % (12-17); White Blood Count 25.6 10^3/uL (3.8-11.8)
[2024-02-08 05:37] LABS: ABS Basophils 0.1 10^3/uL (0.0-0.1); ABS Eosinophils 0.6 10^3/uL (0.0-0.5); ABS Lymphocytes 1.6 10^3/uL (1.0-4.8); ABS Monocytes 0.8 10^3/uL (0.0-0.9); ABS Neutrophils 22.4 10^3/uL (1.5-7.6); ABS Nucleated RBC 0.31 10^3/ul; Eosinophil % 2.4 %; Lymphocyte % 6.3 %; Nucleated Red Blood Cells % 1.2 %/100WBC (0.0-0.8)
[2024-02-08 06:09] LABS: Calcium 7.1 mg/dL (8.6-10.3); Creatinine, Serum 2.17 mg/dL (0.51-0.95); Magnesium 2.4 mg/dL (1.9-2.7); Phosphorus 3.7 mg/dL (2.5-5.0); Potassium 3.8 mmol/L (3.5-5.0); eGFR CKD-EPI 24.5 (>60)
[2024-02-08] MEDS: Bumetanide IV 0.25 MG/ML 4 ml VIAL (1 mg) IV SLOW PU ONE ×2 (09:26→19:19)
[2024-02-08] MEDS: Potassium Chloride LIQUID 20 MEQ/15 ML LIQUID PO ONE (09:26)
[2024-02-08 15:47] LABS: Anaplasma phagocytophilum Negative (Negative); B. miyamotoi PCR, B Negative (Negative); Babesia divergens/MO-1 Negative (Negative); Babesia ducani Negative (Negative); Ehrlichia chaffeensis Negative (Negative); Ehrlichia ewingii/canis Negative (Negative); Ehrlichia muris eauclairensis Negative (Negative)
[2024-02-08 17:13] LABS: Potassium 3.7 mmol/L (3.5-5.0)
[2024-02-08 17:14] LABS: Calcium 6.8 mg/dL (8.6-10.3); Creatinine, Serum 2.12 mg/dL (0.51-0.95); eGFR CKD-EPI 25.2 (>60)
[2024-02-09 05:29] LABS: Hematocrit 23.2 % (35-45); Hemoglobin 7.4 g/dL (11.5-14.3); Mean Corpuscular Hgb Conc 31.8 g/dL (31-36); Mean Corpuscular Volume 81.7 fL (80-97); Mean Platelet Volume 8.7 fL (7.5-11.2); Platelet Count 271 10^3/uL (150-450); Red Blood Count 2.84 10^6/uL (3.63-4.92); Red Cell Distribution Width 19.7 % (12-17)
[2024-02-09 06:05] LABS: Calcium 6.9 mg/dL (8.6-10.3); Creatinine, Serum 2.16 mg/dL (0.51-0.95); Magnesium 2.2 mg/dL (1.9-2.7); Phosphorus 4.1 mg/dL (2.5-5.0); Potassium 3.4 mmol/L (3.5-5.0); Vancomycin Random 26.5 mcg/mL; eGFR CKD-EPI 24.7 (>60)
[2024-02-09 07:37] LABS: ABS Basophils 0.1 10^3/uL (0.0-0.1); ABS Eosinophils 0.6 10^3/uL (0.0-0.5); ABS Lymphocytes 1.4 10^3/uL (1.0-4.8); ABS Monocytes 0.7 10^3/uL (0.0-0.9); ABS Neutrophils 19.1 10^3/uL (1.5-7.6); Anisocytosis 1+; Eosinophil % 2.7 %; Hypochromasia 2+; Lymphocyte % 6.6 %; Nucleated Red Blood Cells % 1.4 %/100WBC (0.0-0.8)
[2024-02-09] MEDS: Bumetanide IV 0.25 MG/ML 4 ml VIAL (1 mg) IV SLOW PU SCH (15:56)
[2024-02-09] MEDS: Potassium Chlor 20 meq TAB.ER PO ONE (17:19)
[2024-02-09] MEDS: Potassium Chloride LIQUID 20 MEQ/15 ML LIQUID PO ONE (17:35)
[2024-02-09] MEDS: KCL 20 MEQ/100 ML IVPREMIX 20 MEQ/100 ML BAG IV SCH ×2 (20:21→22:06)
[2024-02-10 10:02] LABS: ABS Basophils 0.1 10^3/uL (0.0-0.1); ABS Eosinophils 0.1 10^3/uL (0.0-0.5); ABS Lymphocytes 1.3 10^3/uL (1.0-4.8); ABS Monocytes 0.6 10^3/uL (0.0-0.9); Eosinophil % 0.6 %; Hematocrit 21.2 % (35-45); Hemoglobin 6.8 g/dL (11.5-14.3); Lymphocyte % 6.2 %; Mean Corpuscular Hemoglobin 26.1 pg (27-33); Mean Corpuscular Hgb Conc 32.1 g/dL (31-36); Mean Corpuscular Volume 81.2 fL (80-97); Mean Platelet Volume 9.6 fL (7.5-11.2); Platelet Count 219 10^3/uL (150-450); Red Blood Count 2.61 10^6/uL (3.63-4.92); Red Cell Distribution Width 19.8 % (12-17); White Blood Count 20.1 10^3/uL (3.8-11.8)
[2024-02-10 15:19] LABS: Albumin 1.8 g/dL (3.2-5.2); Albumin/Globulin Ratio 0.6 (1-3); Creatinine, Serum 2.16 mg/dL (0.51-0.95); Globulin 2.9 g/dL (2-4); Potassium 3.4 mmol/L (3.5-5.0); Total Bilirubin 0.4 mg/dL (0.2-1.0); Total Protein 4.7 g/dL (6.4-8.9); eGFR CKD-EPI 24.7 (>60)
[2024-02-10 17:12] LABS: PCO2 Arterial 38 mmHg (35-45); PO2 Arterial 60 mmHg (80-100)
[2024-02-10] MEDS: Potassium Chloride LIQUID 20 MEQ/15 ML LIQUID PO ONE (17:49)
[2024-02-11 05:55] LABS: ABS Basophils 0.1 10^3/uL (0.0-0.1); ABS Eosinophils 0.3 10^3/uL (0.0-0.5); ABS Lymphocytes 1.1 10^3/uL (1.0-4.8); ABS Monocytes 0.7 10^3/uL (0.0-0.9); ABS Neutrophils 15.8 10^3/uL (1.5-7.6); ABS Nucleated RBC 0.17 10^3/ul; Eosinophil % 1.6 %; Hematocrit 23.3 % (35-45); Lymphocyte % 5.9 %; Mean Corpuscular Hemoglobin 28.2 pg (27-33); Mean Corpuscular Hgb Conc 34.2 g/dL (31-36); Mean Corpuscular Volume 82.3 fL (80-97); Mean Platelet Volume 9.9 fL (7.5-11.2); Nucleated Red Blood Cells % 0.9 %/100WBC (0.0-0.8); Platelet Count 186 10^3/uL (150-450); Red Blood Count 2.83 10^6/uL (3.63-4.92); White Blood Count 17.9 10^3/uL (3.8-11.8)
[2024-02-11 07:51] LABS: Albumin 1.8 g/dL (3.2-5.2); Albumin/Globulin Ratio 0.7 (1-3); Creatinine, Serum 2.01 mg/dL (0.51-0.95); Globulin 2.5 g/dL (2-4); Potassium 3.4 mmol/L (3.5-5.0); Total Bilirubin 0.6 mg/dL (0.2-1.0); Total Protein 4.3 g/dL (6.4-8.9); eGFR CKD-EPI 26.9 (>60)
[2024-02-11] MEDS: Potassium Chloride LIQUID 20 MEQ/15 ML LIQUID PO ONE (13:22)
[2024-02-11] MEDS: Ondansetron 4 mg VIAL 2 MG/ML 2 ml VIAL IV PRN (17:14)
[2024-02-12 05:34] LABS: ABS Basophils 0.1 10^3/uL (0.0-0.1); ABS Eosinophils 0.3 10^3/uL (0.0-0.5); ABS Monocytes 1.1 10^3/uL (0.0-0.9); ABS Neutrophils 14.3 10^3/uL (1.5-7.6); ABS Nucleated RBC 0.17 10^3/ul; Hematocrit 21.5 % (35-45); Lymphocyte % 5.9 %; Mean Corpuscular Hemoglobin 27.1 pg (27-33); Mean Corpuscular Hgb Conc 32.6 g/dL (31-36); Mean Corpuscular Volume 83.1 fL (80-97); Mean Platelet Volume 10.1 fL (7.5-11.2); Platelet Count 179 10^3/uL (150-450); Red Blood Count 2.59 10^6/uL (3.63-4.92); Red Cell Distribution Width 18.8 % (12-17); White Blood Count 16.8 10^3/uL (3.8-11.8)
[2024-02-12 06:08] LABS: Albumin 1.8 g/dL (3.2-5.2); Albumin/Globulin Ratio 0.7 (1-3); Calcium 6.9 mg/dL (8.6-10.3); Creatinine, Serum 1.86 mg/dL (0.51-0.95); Globulin 2.5 g/dL (2-4); Potassium 3.3 mmol/L (3.5-5.0); Total Bilirubin 0.4 mg/dL (0.2-1.0); Total Protein 4.3 g/dL (6.4-8.9); eGFR CKD-EPI 29.5 (>60)
[2024-02-12] MEDS: Potassium Chloride LIQUID 20 MEQ/15 ML LIQUID PO ONE (08:07)
[2024-02-12 15:18] LABS: Activated Partial Thrombo Time 98.5 seconds (26.0-38.0); INR 1.11 (0.85-1.14)
[2024-02-12] MEDS: Bumetanide IV 0.25 MG/ML 4 ml VIAL (1 mg) IV SLOW PU ONE (19:26)
[2024-02-13] MEDS: Bumetanide IV 0.25 MG/ML 4 ml VIAL (1 mg) IV SLOW PU ONE ×2 (05:00→11:05)
[2024-02-13 05:16] LABS: PCO2 Arterial 65 mmHg (35-45)
[2024-02-13 05:20] LABS: PO2 Arterial 59 mmHg (80-100)
[2024-02-13 05:30] LABS: ABS Basophils 0.1 10^3/uL (0.0-0.1); ABS Lymphocytes 0.5 10^3/uL (1.0-4.8); ABS Monocytes 0.8 10^3/uL (0.0-0.9); ABS Neutrophils 15.1 10^3/uL (1.5-7.6); ABS Nucleated RBC 0.09 10^3/ul; Eosinophil % 0.2 %; Hematocrit 20.6 % (35-45); Hemoglobin 6.9 g/dL (11.5-14.3); Lymphocyte % 3.2 %; Mean Corpuscular Hemoglobin 28.3 pg (27-33); Mean Corpuscular Hgb Conc 33.6 g/dL (31-36); Mean Corpuscular Volume 84.1 fL (80-97); Mean Platelet Volume 10.4 fL (7.5-11.2); Nucleated Red Blood Cells % 0.5 %/100WBC (0.0-0.8); Platelet Count 196 10^3/uL (150-450); Red Blood Count 2.45 10^6/uL (3.63-4.92); Red Cell Distribution Width 19.2 % (12-17); White Blood Count 16.5 10^3/uL (3.8-11.8)
[2024-02-13] MEDS ORDERED: Piperacillin/Tazobac 3.375 BAG 3.375 GM/100 ML BAG IV ONE (05:45)
[2024-02-13 06:00] LABS: Albumin 1.8 g/dL (3.2-5.2); Albumin/Globulin Ratio 0.7 (1-3); Calcium 7.3 mg/dL (8.6-10.3); Creatinine, Serum 1.72 mg/dL (0.51-0.95); Globulin 2.7 g/dL (2-4); Potassium 3.3 mmol/L (3.5-5.0); Total Bilirubin 0.4 mg/dL (0.2-1.0); Total Protein 4.5 g/dL (6.4-8.9); eGFR CKD-EPI 32.4 (>60)
[2024-02-13] MEDS ORDERED: Zosyn per Pharmacy NOTE FOLLOW UP SCH (06:00)
[2024-02-13 07:52] LABS: Magnesium 1.9 mg/dL (1.9-2.7)
[2024-02-13] MEDS: KCL 20 MEQ/100 ML IVPREMIX 20 MEQ/100 ML BAG IV SCH (09:01)
[2024-02-13] MEDS ORDERED: Lorazepam PYXIS KEY PRN (11:28)
[2024-02-13] MEDS: LORazepam 2 mg VIAL 1 ml IV PUSH ONE (12:08)
[2024-02-13 14:39] LABS: TSH Ultra Thyroid Stim Horm 4.6 mcIU/mL (0.34-5.60)
[2024-02-13 18:09] LABS: Hematocrit 22.1 % (35-45); Hemoglobin 7.1 g/dL (11.5-14.3); Mean Corpuscular Hemoglobin 27.2 pg (27-33); Mean Corpuscular Hgb Conc 31.9 g/dL (31-36); Mean Corpuscular Volume 85.3 fL (80-97); Mean Platelet Volume 10.2 fL (7.5-11.2); Platelet Count 231 10^3/uL (150-450); Red Cell Distribution Width 19.2 % (12-17); White Blood Count 22.3 10^3/uL (3.8-11.8)
[2024-02-13 18:34] LABS: Activated Partial Thrombo Time 48.5 seconds (26.0-38.0); INR 1.04 (0.85-1.14)
[2024-02-13 18:50] LABS: ABS Lymphocytes 0.4 10^3/uL (1.0-4.8); ABS Neutrophils 20.8 10^3/uL (1.5-7.6); ABS Nucleated RBC 0.11 10^3/ul; Anisocytosis 2+; Basophilic Stippling 2+; Nucleated Red Blood Cells % 0.5 %/100WBC (0.0-0.8)
[2024-02-13 18:51] LABS: Creatinine, Serum 1.7 mg/dL (0.51-0.95); eGFR CKD-EPI 32.9 (>60)
[2024-02-13] MEDS: Heparin 5000 UNITS/ML 1 mL VIAL SUBCUT SCH (19:21)
[2024-02-13 21:02] LABS: PO2 Arterial 137 mmHg (80-100)
[2024-02-13 21:11] LABS: PCO2 Arterial 72 mmHg (35-45)
[2024-02-13] MEDS: Atropine 0.1 MG/ML 10 ml SYR (1 mg) IV PUSH ONE (21:17)
[2024-02-14] MEDS: Norepinephrine 4 MG/250mL D5W 4,000 MCG/250 ML BAG IV SCH
[2024-02-14 06:06] LABS: ABS Lymphocytes 0.6 10^3/uL (1.0-4.8); ABS Monocytes 0.8 10^3/uL (0.0-0.9); Hematocrit 18.7 % (35-45); Hemoglobin 6.1 g/dL (11.5-14.3); Mean Corpuscular Hemoglobin 27.8 pg (27-33); Mean Corpuscular Hgb Conc 32.8 g/dL (31-36); Mean Corpuscular Volume 84.9 fL (80-97); Nucleated Red Blood Cells % 0.6 %/100WBC (0.0-0.8); Platelet Count 170 10^3/uL (150-450); Red Blood Count 2.21 10^6/uL (3.63-4.92); Red Cell Distribution Width 19.2 % (12-17); White Blood Count 18.4 10^3/uL (3.8-11.8)
[2024-02-14 06:53] LABS: Calcium 7.3 mg/dL (8.6-10.3); Creatinine, Serum 1.84 mg/dL (0.51-0.95); Magnesium 1.9 mg/dL (1.9-2.7); Potassium 4.1 mmol/L (3.5-5.0); eGFR CKD-EPI 29.9 (>60)
[2024-02-15 05:12] LABS: Albumin 1.8 g/dL (3.2-5.2); Albumin/Globulin Ratio 0.6 (1-3); Calcium 7.9 mg/dL (8.6-10.3); Creatinine, Serum 2.35 mg/dL (0.51-0.95); Globulin 2.8 g/dL (2-4); Potassium 4.9 mmol/L (3.5-5.0); Total Bilirubin 0.3 mg/dL (0.2-1.0); Total Protein 4.6 g/dL (6.4-8.9); eGFR CKD-EPI 22.3 (>60)
[2024-02-15] MEDS: Norepinephrine 4 MG/250mL D5W 4,000 MCG/250 ML BAG IV ONE (05:24)
[2024-02-15 05:49] LABS: Hematocrit 18.1 % (35-45); Hemoglobin 5.6 g/dL (11.5-14.3); Mean Corpuscular Hemoglobin 27.3 pg (27-33); Mean Platelet Volume 10.2 fL (7.5-11.2); Platelet Count 273 10^3/uL (150-450); Red Blood Count 2.05 10^6/uL (3.63-4.92); Red Cell Distribution Width 19.4 % (12-17); White Blood Count 12.9 10^3/uL (3.8-11.8)
[2024-02-15 06:06] LABS: Resp Rate 20
[2024-02-15 06:08] LABS: PO2 Arterial 119 mmHg (80-100)
[2024-02-15 06:15] LABS: PCO2 Arterial > 100 mmHg (35-45)
[2024-02-15 07:53] LABS: ABS Lymphocytes 0.6 10^3/uL (1.0-4.8); ABS Monocytes 0.5 10^3/uL (0.0-0.9); ABS Neutrophils 11.8 10^3/uL (1.5-7.6); ABS Nucleated RBC 0.19 10^3/ul; Anisocytosis 2+; Hypochromasia 2+; Lymphocyte % 4.4 %; Nucleated Red Blood Cells % 1.5 %/100WBC (0.0-0.8)
[2024-02-15] MEDS: Morphine 10 MG/ML VIAL (1 ml) IV PRN (08:26)
[2024-02-15] MEDS: LORazepam 2 mg VIAL 1 ml IV PUSH PRN (08:26)
[2024-02-15] MEDS ORDERED: Lorazepam PYXIS KEY PRN (08:29)
[2024-02-15] MEDS: Morphine 10 MG/ML VIAL (1 ml) ONE (08:37)
[2024-02-15] MEDS ORDERED: LORazepam 2 MG/ML 1 mL Syringe IV SCH (09:00)
[2024-02-15] MEDS ORDERED: Morphine 10 MG/ML VIAL (1 ml) IV SCH (09:00)
[2024-02-15 09:56] VITALS: BP 99/42
== END 2024-02-15 08:50 | disposition expired | DRG 871 ==
LOC: ED 18:25 → SUATTDRO 23:29 → EDHOLD 23:29 → SSU 01-21 07:50 → ICU 01-21 08:15 → MED 01-24 21:51 → ICU 01-26 06:31 → MED 02-09 17:27 → ICU 02-13 06:17
PROVIDERS: ADMIT Hospitalist; ATTEND Internal Medicine Critical Care Medicine